=== PATIENT | female | born 2000 | race Caucasian/White ===

== ENCOUNTER 2021-02-01 14:58 | Inpatient (IN) | payer MEDICAID, SELFPAY ==
[2021-02-01] VITALS (15 sets, daily range): BP systolic 101–134; BP diastolic 53–91; PULSE 10–99; RESP 14–22; TEMP 36.6–37.1; O2SAT 96–100; BMI 21.7; BMI 20.4
--- NOTE | 2021-02-01 15:06 | EKG12_ITS ---
Test Reason : OD Blood Pressure : / mmHG Vent. Rate : 094 BPM Atrial Rate : 094 BPM P-R Int : 146 ms QRS Dur : 084 ms QT Int : 370 ms P-R-T Axes : 037 086 038 degrees QTc Int : 462 ms Normal sinus rhythm Normal ECG Confirmed by RONI HASSAN, JEAN ([id number]), movie editor FEDERICA FORTE ([id number]) on 02/06/2021 8:38:27 AM Referred By: Confirmed By:JEAN TAMAYO MD
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
--- NOTE | 2021-02-01 15:24 | CM.ED ---
NATHALY Note SW met with patient briefly. Patient reports she has no insurance. Plan: Crisis will need to be contacted for evaluation. Ashley EISENBERG
[2021-02-01 15:43] LABS: Absolute Lymphocyte Count 0.97 X10^3/uL (0.83-4.51); Absolute Neutrophil Count 3.1 X10^3/uL (2.0-7.7); Basophil# 0.01 X10^3/uL; Basophil% 0.2 % (0-1); Eosinophil# 0.07 X10^3/uL; Eosinophils% 1.5 % (0-5); Hematocrit 39.3 % (37-47); Lymphocyte # 0.97 X10^3/ul (0.83-4.51); Lymphocyte % 21.5 % (19-41); Mean Corp Hgb Conc 35.6 g/dL (32-36); Mean Corpuscular Hgb 32.4 pg (27.0-32.0); Mean Platelet Vol. 10.3 fl (6.2-12.0); Monocyte# 0.38 X10^3/uL; Monocyte% 8.4 % (0-10); NRBC Flagged by Analyzer 0 % (0-5); Neutrophil # 3.08 X10^3/uL (2.7-7.7); Neutrophil % 68.2 % (47-70); Platelet Count 290 K/mm3 (150-450); RBC Distribution Width CV 11.3 % (11.6-14.6); RBC Distribution Width SD 37.8 fl (35.1-43.9); Red Blood Count 4.32 M/mm3 (4.2-5.4); White Blood Count 4.5 K/mm3 (4.4-11.0)
[2021-02-01] MEDS: Activated Charcoal 25 GM/120 ML BOT PO (15:47)
[2021-02-01 15:54] LABS: Anion Gap 5 (5-15); BUN 8 mg/dL (7-18); BUN/Creat Ratio 12.2 RATIO (10-20); Calcium,Total 8.9 mg/dL (8.5-10.1); Chloride 108 mmol/L (98-107); Creatinine, Serum 0.66 mg/dL (0.55-1.02); EST Glomerular Filtration Rate 120 mL/min (>60); Est Glom Filt Rate - Afr Amer 145 mL/min (>60); Estimated Creatinine Clearance 126.22 ml/min; Glucose 112 mg/dL (74-106); Sodium Level 141 mmol/L (136-145)
[2021-02-01] MEDS: Ondansetron 4 MG/2 ML Vial IV ×2 (16:35→19:42)
[2021-02-01 16:55] LABS: Amphetamine Urine VISTA NEGATIVE (<1000 ng/mL); Barbiturate Urine VISTA NEGATIVE (< 200 ng/mL); Benzodiazepine Urine VISTA NEGATIVE (< 200 ng/mL); Cocaine Urine VISTA NEGATIVE (< 300 ng/mL); Ecstacy Urine VISTA NEGATIVE (< 500 ng/mL); Methadone Urine VISTA NEGATIVE (< 300 ng/mL); PCP Urine VISTA NEGATIVE (< 25 ng/mL); THC Urine VISTA NEGATIVE (< 50 ng/mL); Vista UDS pH Range 5
[2021-02-01 17:04] LABS: Acetaminophen (Tylenol) Level 165.6 ug/mL (10.0-30.0)
--- NOTE | 2021-02-01 17:04 | CM.ED ---
SW spoke to registration. Patient has [place] Medicaid. Plan: Referral to inpatient psych Ashley EISENBERG
[2021-02-01 17:14] LABS: Internal QC Validated? YES +Cl - CLEAR BKGD; Pregnancy, Serum, hCG Quali. NEGATIVE Negative
[2021-02-01 17:16] LABS: Salicylate < 1.7 mg/dL (2.8-20.0)
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
[2021-02-01 17:50] LABS: AST(SGOT) 18 U/L (15-37); Alanine Aminotransfer ALT/SGPT 25 U/L (13-56); Albumin, Serum 3.9 g/dL (3.2-5.0); Alkaline Phosphatase 72 U/L (45-117); Bilirubin, Direct 0.11 mg/dL (0.00-0.30); Globulin 4.4 g/dL (2.2-4.2); Protein, Total 8.3 g/dL (6.4-8.2)
--- NOTE | 2021-02-01 17:51 | ED.RN ---
report to icu
[2021-02-01] MEDS: 0.9% Normal Saline 1,000 ML 125 ML IV (19:01)
[2021-02-01 19:31] LABS: International Normalized Ratio 1.2; Prothrombin Time (Protime)PT. 14.2 SECONDS (11.7-14.9)
--- NOTE | 2021-02-01 19:45 | NURSING ---
pt said ok to give information to ema and jaison
[2021-02-01 19:54] LABS: Acetaminophen (Tylenol) Level 279.6 ug/mL (10.0-30.0)
--- NOTE | 2021-02-01 20:59 | CM.ED ---
NATHALY Note NATHALY called Angela at [facility] and updated her regarding patient in the ICU. NATHALY faxed MD notes and this teletypewriter operator's evaluation to [facility]. Plan: Inpatient psych Ashley EISENBERG
[2021-02-01 22:59] LABS: Acetaminophen (Tylenol) Level 139.4 ug/mL (10.0-30.0)
[2021-02-02] VITALS (11 sets, daily range): BP systolic 107–135; BP diastolic 71–91; PULSE 60–99; RESP 13–20; TEMP 36.6–37.1; O2SAT 96–100
[2021-02-02] MEDS: 0.9% Normal Saline 1,000 ML 125 ML IV (02:20)
[2021-02-02 05:26] LABS: ALB/GLOB Ratio 0.8 RATIO (0.9-2.4); AST(SGOT) 13 U/L (15-37); Alanine Aminotransfer ALT/SGPT 25 U/L (13-56); Albumin, Serum 3.1 g/dL (3.2-5.0); Alkaline Phosphatase 55 U/L (45-117); Anion Gap 7 (5-15); BUN 4 mg/dL (7-18); BUN/Creat Ratio 7.4 RATIO (10-20); Chloride 110 mmol/L (98-107); Creatinine, Serum 0.54 mg/dL (0.55-1.02); EST Glomerular Filtration Rate 150 mL/min (>60); Est Glom Filt Rate - Afr Amer 181 mL/min (>60); Estimated Creatinine Clearance 174.31 ml/min; Globulin 3.7 g/dL (2.2-4.2); Glucose 91 mg/dL (74-106); Potassium 3.1 mmol/L (3.5-5.1); Protein, Total 6.8 g/dL (6.4-8.2); Sodium Level 141 mmol/L (136-145)
--- NOTE | 2021-02-02 06:54 | EX.PCM.CONCC ---
Assessment & Plan Assessment/Plan (1) Intentional acetaminophen overdose: PLAN: RECOMMENDATIONS: 1. Recheck acetaminophen level at 0900 hrs. If levels remain normal, will discontinue N-acetylcysteine. 2. Potassium repletion as ordered. 3. Encourage incentive spirometer use and mobilize patient as tolerated. 4. Crisis evaluation later today. 5. Will sign off from a critical care perspective. Please call with any additional questions. IMPRESSIONS: 1. Intentional acetaminophen overdose/suicide attempt The patient presented to the hospital with an intentional acetaminophen overdose and qualified for the initiation of N-acetylcysteine. The patient's acetaminophen level has normalized overnight. Liver function remains within normal limits. The patient is mentating appropriately. If the recheck of her acetaminophen level this morning remains within normal limits, will discontinue N-acetylcysteine. The patient can then be evaluated by crisis. 2. Hypokalemia Electrolyte repletion as ordered. Recheck levels in the morning. 3. History of schizophrenia/prior suicide attempt Complicates care, management, recovery and prognosis. Management as noted above. This note was generated with [employer] dictation software. It may contain incorrect words, spelling, and punctuation that were not noted in checking the note before signing. HPI Consult Data Date of Consult: 02/02/21 HPI Narrative Reason for Consultation: Acetaminophen overdose HPI Narrative: The patient is a 20-year-old female, with a history as outlined below, who presented to the emergency department on February 01 following an intentional acetaminophen overdose. The patient reported that the inciting factor leading to her overdose was an argument that she had with her boyfriend. She does report a prior suicide attempt at the age of [age] years old. She reports a history of schizophrenia, but denies taking any prescribed medications. On presentation to the emergency department, the patient was noted to be afebrile and hemodynamically stable. She was maintaining appropriate oxygen saturations on room air. CBC with differential was unremarkable. Coagulation profile was within normal limits. Chemistry and liver function profile were within normal limits. test was negative. Toxicology screen was negative. Alcohol level was negative. Peak acetaminophen level was noted to be 279. Rapid coronavirus antigen testing was negative. The patient received supplemental IV fluid hydration and was started on N-acetylcysteine. She was admitted to the medical intensive care unit for further management. No overnight issues were identified by the nursing staff. This morning, the patient's acetaminophen level was noted to be 25. [facility] Medical History ADD (attention deficit disorder) Bipolar 1 disorder Suicidal ideation Allergy/AdvReac Type Severity Reaction Status Date / Time bee venom protein (honey bee) Allergy Hives Verified 02/01/21 15:02 grass pollen Allergy Itching Verified 02/01/21 15:02 peanut Allergy Anaphylaxis Verified 02/01/21 15:02 strawberry Allergy Anaphylaxis Verified 02/01/21 15:02 Social History Smoking Status: Current every day smoker tobacco type: cigarettes and e-cigarettes ROS Constitutional Constitutional: Denies chills, fatigue, fever(s) or headache(s) Eyes Eyes: Denies blurry vision or change in vision ENT HEENT: Denies dizziness, dysphagia, epistaxis or headache(s) Cardiovascular Cardiovascular: Denies chest pain, dyspnea or edema Respiratory/Chest Respiratory/Chest: Denies cough or dyspnea Gastrointestinal Gastrointestinal: Denies abdominal pain, diarrhea, nausea or vomiting Genitourinary Genitourinary: Denies difficulty urinating Musculoskeletal Musculoskeletal: Denies arthralgias Integumentary Integumentary: Denies lesions, rash or skin ulcer Neurologic Neurologic: Denies abnormal gait or abnormal speech Psychiatric Psychiatric: Reports depression and suicidal ideation Endocrine Endocrinology: Denies fatigue Hematologic/Lymphatic Hematologic/Lymphatic: Denies easy bleeding or easy bruising Physical Exam Const alert and no apparent distress General Appearance: cooperative and well developed HEENT normocephalic and head/scalp atraumatic Teeth and Gingiva: poor dentition Eyes PERRL, EOMs intact bilaterally and conjunctivae normal Neck supple General: trachea midline Chest inspection of chest normal Resp Auscultation: clear to auscultation bilaterally Cardio regular rate, regular rhythm, S1 normal heart sound and S2 normal heart sound GI normal to inspection, nondistended, normoactive bowel sounds Extremity no clubbing, cyanosis or edema Skin no rashes or lesions noted Neuro moves all extremities and no focal motor deficits Psych cooperative and affect normal Lab / Micro Data Result Diagrams: 02/01/21 15:20 02/02/21 05:00 Labs: Laboratory Results - last 24 hr 02/01/21 15:20: Salicylates < 1.7 L, Acetaminophen Cancelled 02/01/21 15:20: WBC 4.5, RBC 4.32, Hgb 14.0, Hct 39.3, MCV 91.0, MCH 32.4 H, MCHC 35.6, RDW Std Deviation 37.8, RDW Coeff of Priyank 11.3 L, Plt Count 290, MPV 10.3, Immature Gran % (Auto) 0.200, Neut % (Auto) 68.2, Lymph % (Auto) 21.5, [place] % (Auto) 8.4, Eos % (Auto) 1.5, Baso % (Auto) 0.2, Absolute Neuts (auto) 3.1, Absolute Lymphs (auto) 0.97, Nucleated RBC % 0 02/01/21 15:20: Sodium 141, Potassium 4.0, Chloride 108 H, Carbon Dioxide 28.0, Anion Gap 5, BUN 8, Creatinine 0.66, Estim Creat Clear Calc 126.22, Est GFR (MDRD) Af Amer 145, Est GFR (MDRD) Non-Af 120, BUN/Creatinine Ratio 12.2, Glucose 112 H, Calcium 8.9 02/01/21 15:20: Ethyl Alcohol 6.0 02/01/21 15:20: Serum , Qual NEGATIVE 02/01/21 15:20: Acetaminophen 165.6 H* 02/01/21 15:20: Total Bilirubin 0.40, Direct Bilirubin 0.11, AST 18, ALT 25, Alkaline Phosphatase 72, Total Protein 8.3 H, Albumin 3.9, Globulin 4.4 H 02/01/21 15:35: Urine Opiates Screen NEGATIVE, Urine Methadone Screen NEGATIVE, Ur Barbiturates Screen NEGATIVE, Ur Phencyclidine Scrn NEGATIVE, Ur Amphetamines Screen NEGATIVE, U Methamphetamin-MDMA NEGATIVE, U Benzodiazepines Scrn NEGATIVE, Urine Cocaine Screen NEGATIVE, U Cannabinoids Screen NEGATIVE, Ur Drug Screen Comment 02/01/21 19:00: PT 14.2, INR 1.2 02/01/21 19:00: Acetaminophen 279.6 H* 02/01/21 22:20: Acetaminophen 139.4 H* 02/02/21 05:00: Sodium 141, Potassium 3.1 L, Chloride 110 H, Carbon Dioxide 24.0, Anion Gap 7, BUN 4 L, Creatinine 0.54 L, Estim Creat Clear Calc 174.31, Est GFR (MDRD) Af Amer 181, Est GFR (MDRD) Non-Af 150, BUN/Creatinine Ratio 7.4 L, Glucose 91, Calcium 8.0 L, Total Bilirubin 0.40, AST 13 L, ALT 25, Alkaline Phosphatase 55, Total Protein 6.8, Albumin 3.1 L, Globulin 3.7, Albumin/Globulin Ratio 0.8 L 02/02/21 05:00: Acetaminophen 25.0 Micro: Microbiology 02/01/21 15:25 Nasal Secretion SARS-CoV-2 Antigen (Rapid) - Final Charges/Coding Visit Charges Inpatient E&M: 02541 Init Hosp L3
[2021-02-02] MEDS: Potassium Chloride Oral Tablet 20 MEQ 60 MEQ PO (08:35)
[2021-02-02 10:46] LABS: Acetaminophen (Tylenol) Level 5.6 ug/mL (10.0-30.0)
--- NOTE | 2021-02-02 11:09 | NURSING ---
Rosalinda MARTINEZ SW contacted regarding pt's medical clearance, as crisis assessment and referral process already initiated in ED. She stated that she will start working on pt's case.
--- NOTE | 2021-02-02 11:31 | CASEMGMT ---
SOCIAL WORK Call from nursing, patient is medically cleared. SW has already assessed patient and patient requires hospitalization due to intentional overdose. Referral called and faxed to [facility]. Intake reports beds available. Pending review at this time. Terri Chaparro, [employer], CAPSULE FILLING MACHINE OPERATOR
--- NOTE | 2021-02-02 13:32 | CASEMGMT ---
Awaiting [facility] to let SW know when pt can be set up for transport. SW let pt know that she will be going to [facility] to be assessed, due to the overdose. Pt states understanding. Pt would like SW to call her grandmother Marcos Youngblood to let her know where she is going. SW called grandmother Marcos Youngblood([phone]) to let her know pt is going to [facility] later today, phone number given to Marcos. LALITO Rose
--- NOTE | 2021-02-02 13:33 | PN.HOSP_ITS ---
Subjective Subjective Patient seen and examined. She had no complaints. Her serum acetaminophen level had trended down to 5.6 today. Review of systems otherwise negative. Objective Data Objective Data Vital Signs: Vital Signs Temp Pulse Resp BP Pulse Ox 98.7 F 78 18 114/74 98 02/02/21 11:02 02/02/21 11:02 02/02/21 11:02 02/02/21 11:02 02/02/21 11:02 Oxygen Delivery Method Room Air Weight: 147 lb 11.355 oz Body Mass Index (BMI) 20.4 Intake & Output: Intake and Output for Last 24 Hours 01/31/21 02/01/21 02/02/21 23:59 23:59 23:59 Intake Total 735 / 735 4184.11 / 4184.11 Balance 735 / 735 4184.11 / 4184.11 Lab / Micro Data Result Diagrams: 02/01/21 15:20 02/02/21 05:00 Labs: Laboratory Results - last 24 hr 02/01/21 15:20: Salicylates < 1.7 L, Acetaminophen Cancelled 02/01/21 15:20: WBC 4.5, RBC 4.32, Hgb 14.0, Hct 39.3, MCV 91.0, MCH 32.4 H, MCHC 35.6, RDW Std Deviation 37.8, RDW Coeff of Priyank 11.3 L, Plt Count 290, MPV 10.3, Immature Gran % (Auto) 0.200, Neut % (Auto) 68.2, Lymph % (Auto) 21.5, [place] % (Auto) 8.4, Eos % (Auto) 1.5, Baso % (Auto) 0.2, Absolute Neuts (auto) 3.1, Absolute Lymphs (auto) 0.97, Nucleated RBC % 0 02/01/21 15:20: Sodium 141, Potassium 4.0, Chloride 108 H, Carbon Dioxide 28.0, Anion Gap 5, BUN 8, Creatinine 0.66, Estim Creat Clear Calc 126.22, Est GFR (MDRD) Af Amer 145, Est GFR (MDRD) Non-Af 120, BUN/Creatinine Ratio 12.2, Glucose 112 H, Calcium 8.9 02/01/21 15:20: Ethyl Alcohol 6.0 02/01/21 15:20: Serum , Qual NEGATIVE 02/01/21 15:20: Acetaminophen 165.6 H* 02/01/21 15:20: Total Bilirubin 0.40, Direct Bilirubin 0.11, AST 18, ALT 25, Alkaline Phosphatase 72, Total Protein 8.3 H, Albumin 3.9, Globulin 4.4 H 02/01/21 15:35: Urine Opiates Screen NEGATIVE, Urine Methadone Screen NEGATIVE, Ur Barbiturates Screen NEGATIVE, Ur Phencyclidine Scrn NEGATIVE, Ur Amphetamines Screen NEGATIVE, U Methamphetamin-MDMA NEGATIVE, U Benzodiazepines Scrn NEG ATIVE, Urine Cocaine Screen NEGATIVE, U Cannabinoids Screen NEGATIVE, Ur Drug Screen Comment 02/01/21 19:00: PT 14.2, INR 1.2 02/01/21 19:00: Acetaminophen 279.6 H* 02/01/21 22:20: Acetaminophen 139.4 H* 02/02/21 05:00: Sodium 141, Potassium 3.1 L, Chloride 110 H, Carbon Dioxide 24.0, Anion Gap 7, BUN 4 L, Creatinine 0.54 L, Estim Creat Clear Calc 174.31, Est GFR (MDRD) Af Amer 181, Est GFR (MDRD) Non-Af 150, BUN/Creatinine Ratio 7.4 L, Glucose 91, Calcium 8.0 L, Total Bilirubin 0.40, AST 13 L, ALT 25, Alkaline Phosphatase 55, Total Protein 6.8, Albumin 3.1 L, Globulin 3.7, Albumin/Globulin Ratio 0.8 L 02/02/21 05:00: Acetaminophen 25.0 02/02/21 07:45: Acetaminophen 5.6 L Micro: Microbiology 02/01/21 15:25 Nasal Secretion SARS-CoV-2 Antigen (Rapid) - Final Physical Exam Const alert, oriented x3 and healthy appearing General Appearance: cooperative Exam Limitations: no limitations HEENT normocephalic, head/scalp atraumatic, hearing grossly normal bilaterally and moist oral mucous membranes Head and Scalp: normocephalic Eyes PERRL, EOMs intact bilaterally and conjunctivae normal Neck no lymphadenopathy and supple Resp normal respiratory effort, no retractions, no use of accessory muscles and clear to auscultation bilaterally Cardio regular rate, regular rhythm, S1 normal heart sound, S2 normal heart sound and no murmurs GI normal to inspection, nondistended, normoactive bowel sounds, soft to palpation, non-tender and non-distended Extremity normal to inspection, full ROM and no clubbing, cyanosis or edema Peripheral Pulses: Yes pulses 2+ throughout Skin no rashes or lesions noted Neuro oriented x3, CN's II-XII intact bilaterally and moves all extremities Sensorium / Orientation: awake and alert Psych affect normal Assessment & Plan Assessment/Plan (1) Acetaminophen toxicity: (2) Intentional acetaminophen overdose: (3) Suicide attempt by acetaminophen overdose: PLAN: #Intentional acetaminophen overdose in suicide attempt * resolved. Tylenol level down to 5.6 * weaned off N acetyl cysteine today. * INR was not elevated * clinically stable and awaiting mental health crises evaluation * critical care on board * #Suicidal attempt with tylenol overdose: as above. DVT prophylaxis: SCDs Disposition: awaiting evaluation by mental health crises team. Charges/Coding Visit Charges Inpatient E&M: 35456 Subs Hosp L2
--- NOTE | 2021-02-02 13:52 | CASEMGMT ---
SOCIAL WORK Call to [facility] to inquire about accepting information and when transport can be arranged. Informed still adding patient into system and will call this worker back. Awaiting call from despatch clerk at [facility]. Terri Chaparro MSW, OPTICAL DESIGNER
--- NOTE | 2021-02-02 14:45 | CASEMGMT ---
SOCIAL WORK Patient accepted to [facility] room [address] Alfaro. Nurse to call report to [phone]. Patient has been updated by Kacie ANDERSEN. Call to [facility]. ETA 60 minutes. Nurse updated. Terri Chaparro MSW, BREAD JOCKEY
--- NOTE | 2021-02-02 15:44 | PCM.DC.SUM ---
Providers Date of Admission: 02/01/21 Primary Care Physician: Oksana Primary Care Phys Consultations 02/01/21 18:51 Consult: Senior Trial Attorney / Pulmonary Medicine Routine Consulting Provider: Pulmonary Medicine cierra Thomposn Reason for Consult: tylenol overdose EMERGENT Consult: No MD Notified: Yes Date Notified: 02/01/21 Time Notified: 18:51 Method of Notification: Text Reason For Visit: INTENTIONAL TYLENOL OVERDOSE Diagnosis Discharge Diagnosis (1) Acetaminophen toxicity: Status: Acute Code(s): T39.1X1A - Poisoning by 4-Aminophenol derivatives, accidental (unintentional), initial encounter (2) Intentional acetaminophen overdose: Status: Acute Code(s): T39.1X2A - Poisoning by 4-Aminophenol derivatives, intentional self-harm, initial encounter (3) Suicide attempt by acetaminophen overdose: Status: Acute Code(s): T39.1X2A - Poisoning by 4-Aminophenol derivatives, intentional self-harm, initial encounter Hospital Course Operations None Summary of Care Provided Minutes Spent on Discharge: 45 Hospital Course: SARAH ROSA, is a 20 F who was admitted through the ED on 02/01/2021 for Tylenol overdose. Patient states her boyfriend broke up with her so she took an overdose of Tylenol. She took 80 pills of acetaminophen 500mg tablets. Her partner made her throw up,a nd she thinks she may have vomited some of it up. She took the pills ~ 30 mins prior to her evaluation in the ED. She has a history fo ADD, bipolar disorder and depression. Review of system was otherwise negative. CBC was unremarkable and BMP was also unremarkable. Liver profile is pending. Serum acetaminophen level was elevated at 165.6. She wasnt yet on the [facility] Charbel Normogram as it starts 4 hours after ingestion. She was given activated charcoal in the ED, She was started on N acetyl cysteine and admitted to the ICU to be managed for acute acetaminophen intoxication. Her Tylenol level trended up to a peak of 279.6 but subsequently started trending down and was 5.6 at time of discharge. Patient tolerated the N-acetylcysteine and this was discontinued after her Tylenol levels fell to less than 10. Crisis mental health team was consulted to evaluate patient. They did evaluate patient and patient was admitted to an inpatient psych facility on 02/02/2021. Patient was therefore discharged to the psych facility on 02/02/2021. Patient was seen and examined prior to discharge. She felt well and had no complaints and had an uneventful night. Review of stents otherwise negative. Labs and vitals reviewed. Home medication reviewed and reconciled. Physical Exam Const alert, oriented x3 and healthy appearing General Appearance: cooperative Exam Limitations: no limitations HEENT normocephalic, head/scalp atraumatic, hearing grossly normal bilaterally and moist oral mucous membranes Eyes PERRL, EOMs intact bilaterally and conjunctivae normal Neck no lymphadenopathy and supple Resp normal respiratory effort, no retractions, no use of accessory muscles and clear to auscultation bilaterally Cardio regular rate, regular rhythm, S1 normal heart sound, S2 normal heart sound and no murmurs GI normal to inspection, nondistended, normoactive bowel sounds, soft to palpation, non-tender and non-distended Extremity normal to inspection, full ROM and no clubbing, cyanosis or edema Skin no rashes or lesions noted Neuro oriented x3, CN's II-XII intact bilaterally and moves all extremities Sensorium / Orientation: awake and alert Psych affect normal Weight / BMI Weight Weight: 147 lb 11.355 oz Body Mass Index (BMI) 20.4 ABG / Lab / Microbiology Data Result Diagrams: 02/01/21 15:20 02/02/21 05:00 Laboratory: Laboratory Results - last 24 hr 02/01/21 15:20: Salicylates < 1.7 L, Acetaminophen Cancelled 02/01/21 15:20: WBC 4.5, RBC 4.32, Hgb 14.0, Hct 39.3, MCV 91.0, MCH 32.4 H, MCHC 35.6, RDW Std Deviation 37.8, RDW Coeff of Priyank 11.3 L, Plt Count 290, MPV 10.3, Immature Gran % (Auto) 0.200, Neut % (Auto) 68.2, Lymph % (Auto) 21.5, [place] % (Auto) 8.4, Eos % (Auto) 1.5, Baso % (Auto) 0.2, Absolute Neuts (auto) 3.1, Absolute Lymphs (auto) 0.97, Nucleated RBC % 0 02/01/21 15:20: Sodium 141, Potassium 4.0, Chloride 108 H, Carbon Dioxide 28.0, Anion Gap 5, BUN 8, Creatinine 0.66, Estim Creat Clear Calc 126.22, Est GFR (MDRD) Af Amer 145, Est GFR (MDRD) Non-Af 120, BUN/Creatinine Ratio 12.2, Glucose 112 H, Calcium 8.9 02/01/21 15:20: Ethyl Alcohol 6.0 02/01/21 15:20: Serum , Qual NEGATIVE 02/01/21 15:20: Acetaminophen 165.6 H* 02/01/21 15:20: Total Bilirubin 0.40, Direct Bilirubin 0.11, AST 18, ALT 25, Alkaline Phosphatase 72, Total Protein 8.3 H, Albumin 3.9, Globulin 4.4 H 02/01/21 15:35: Urine Opiates Screen NEGATIVE, Urine Methadone Screen NEGATIVE, Ur Barbiturates Screen NEGATIVE, Ur Phencyclidine Scrn NEGATIVE, Ur Amphetamines Screen NEGATIVE, U Methamphetamin-MDMA NEGATIVE, U Benzodiazepines Scrn NEGATIVE, Urine Cocaine Screen NEGATIVE, U Cannabinoids Screen NEGATIVE, Ur Drug Screen Comment 02/01/21 19:00: PT 14.2, INR 1.2 02/01/21 19:00: Acetaminophen 279.6 H* 02/01/21 22:20: Acetaminophen 139.4 H* 02/02/21 05:00: Sodium 141, Potassium 3.1 L, Chloride 110 H, Carbon Dioxide 24.0, Anion Gap 7, BUN 4 L, Creatinine 0.54 L, Estim Creat Clear Calc 174.31, Est GFR (MDRD) Af Amer 181, Est GFR (MDRD) Non-Af 150, BUN/Creatinine Ratio 7.4 L, Glucose 91, Calcium 8.0 L, Total Bilirubin 0.40, AST 13 L, ALT 25, Alkaline Phosphatase 55, Total Protein 6.8, Albumin 3.1 L, Globulin 3.7, Albumin/Globulin Ratio 0.8 L 02/02/21 05:00: Acetaminophen 25.0 02/02/21 07:45: Acetaminophen 5.6 L Microbiology: Microbiology 02/01/21 15:25 Nasal Secretion SARS-CoV-2 Antigen (Rapid) - Final D/C Instructions Discharge Diet: No restrictions Meaningful Use Info Meaningful Use Diagnoses (Choose all that apply): None applicable Discharge Plan Admission Admit Date/Time: 02/01/21 17:41 Primary Reason for Your Visit: suicide attempt with intentional tylenol overdose Attending Provider: Gila Kwok Primary Care Provider: Care Physician,No Primary Consulting Providers: Guido Pérez ; Jose Cruz Pulido ; Elysia Ordonez NP Discharge Orders/Prescriptions Referrals / Follow Up: Care Physician,No Primary [Primary Care Provider] - Disposition Disposition (needs filled in before D/C Order can be placed): Psychiatric Hospital or Unit Charges/Coding Visit Charges Inpatient E&M: 46056 Disch Hosp
== END 2021-02-02 15:40 | DRG 817 ==
LOC: ED 17:26 → ICU 17:50
PROVIDERS: Internal Medicine Critical Care Medicine; Admitting Provider Student in an Organized Health Care Education/Training Program; Emergency Provider Emergency Medicine; Visit Provider Student in an Organized Health Care Education/Training Program
DX: T39.1X2A Poisoning by 4-Aminophenol derivatives, intentional self-harm, initial encounter (principal); F17.210 Nicotine dependence, cigarettes, uncomplicated; E87.6 Hypokalemia
CPT/HCPCS: 80048; 80053; 80076; 80307; 80329; 82077; 84703; 85025; 85610; 87426; 93005; 99285; J7030; A4216; G0480; J2405

== ENCOUNTER 2021-02-07 15:57 | Emergency (ER) | payer MEDICAID, SELFPAY ==
[2021-02-07 15:58] VITALS: BP 137/91; PULSE 100; RESP 18; TEMP 36.6; O2SAT 98; BMI 24.6
--- NOTE | 2021-02-07 16:20 | EDS_ITS ---
HPI History of Present Illness Chief Complaint: Other, Pain/Inj Narrative Narrative: 20-year-old female presenting with neck pain. She states her neck go front words. Patient denies any injury. She stated the pain started about an hour ago. She has not tried anything for pain. She has not tried ice or heat. She denies paresthesias. Patient recently admitted in transfer to psychiatric facility for suicide attempt with acetaminophen and was discharged 2 days ago apparently. She states she has not been able to get her Abilify because drug [place] says this pending. She thinks this may be a side effect of withdrawal from Abilify. She denies taking any medications to overdose. She denies drugs or alcohol. She denies suicidal or homicidal ideation. [facility] Medical History ADD (attention deficit disorder) Bipolar 1 disorder Suicidal ideation Allergy/AdvReac Type Severity Reaction Status Date / Time bee venom protein (honey bee) Allergy Hives Verified 02/07/21 16:09 grass pollen Allergy Itching Verified 02/07/21 16:09 peanut Allergy Anaphylaxis Verified 02/07/21 16:09 strawberry Allergy Anaphylaxis Verified 02/07/21 16:09 Social History Smoking Status: Current every day smoker tobacco type: cigarettes and e- cigarettes ROS ROS ED Constitutional Constitutional ED: Denies chills, fever(s) or sweats Eyes Eyes: Denies blurry vision or change in vision ENT ENT ED: Denies ear pain or sore throat Cardiovascular Cardiovascular: Denies chest pain, palpitations or racing heartbeat Respiratory/Chest Respiratory/Chest: Denies cough, dyspnea or sputum Gastrointestinal Gastrointestinal: Denies abdominal pain, constipation, diarrhea, nausea or vomiting Genitourinary Genitourinary ED: Denies dysuria, hematuria or urinary frequency Musculoskeletal Musculoskeletal: Reports neck pain; Denies arthralgias or myalgias Integumentary Denies abscess, Abrasions or rash Neurologic Neurologic: Denies headache(s), paresthesias or weakness Psychiatric Psychiatric: Denies anxiety, depression, suicidal ideation or suicidal thoughts Endocrine Endocrinology: Denies polydipsia or polyuria EXAM Physical Exam Const Vital Signs: 02/07/21 15:58 02/07/21 16:17 Temperature 97.9 F Temperature Source Temporal Pulse Rate 100 Respiratory Rate 18 Respiratory Effort Normal Respiratory Pattern Normal Blood Pressure 137/91 H Blood Pressure Mean 106 Pulse Ox 98 Oxygen Delivery Method Room Air Positive well nourished General Appearance ED: NAD; Negative for pallor HEENT Reports normocephalic, head/scalp atraumatic and moist mucous membranes atraumatic Eyes PERRL and EOMs intact bilaterally Neck full ROM, no lymphadenopathy and supple Neck Narrative: No midline spinal tenderness, deformity, step-off. Chest Wall inspection of chest normal and palpation of chest normal Resp normal respiratory effort and clear to auscultation bilaterally Auscultation: Negative for rales, rhonchi or wheezes Cardio regular rate and regular rhythm GI normal to inspection, nondistended, normoactive bowel sounds and non-distended Auscultation: normoactive bowel sounds Palpation: soft Narrative: Deferred Back/Spine no CVA tenderness General Back: Negative for CVA tenderness Cervical Spine: Negative for cervical spine tenderness Extremity normal to inspection General Extremety ED: Yes edema and tenderness General Extremity: edema Neuro oriented x3 and CN's II-XII intact bilaterally Sensorium / Orientation: alert Motor Exam: strength 5/5 throughout Psych Attitude: No agitated Skin no rashes or lesions noted and no wounds General Skin Exam: Negative for jaundice or pallor MDM MDM MDM Narrative Medical decision making narrative: Patient reports that she has neck pain. She has not tried anything prior to arrival. She was given a shot of Toradol. X- rays of the cervical spine on my interpretation shows no acute fracture and is otherwise normal cervical spine x-ray. Radiologist agree. Since patient states that she is not able to fill her prescription I had social work check into her prescription. Apparently she had reported to the pharmacy that her Medicaid was pending. Social work confirmed that it is not and that her prescriptions are ready and she can pick them up. Patient was counseled that she could use Tylenol and ibuprofen in alternating doses. I did caution her about using over the recommended daily dose of either. It is recommended that she continue taking her medications as prescribed. She is given return precautions. Impression: 1. Cervical strain Radiography Diagnostic Testing: Clinical Impression(s) from Imaging Studies Cervical Spine X-Ray 02/07/21 16:30 IMPRESSION: Normal x-ray examination of the visualized cervical spine. Electronically Signed: Nikita Ellington MD ([place]) at 16:45 EDT , Service support , Discharge Plan Triage Chief Complaint: Other, Pain/Inj ED Provider: Mark Garzon Dx/Rx/DC Orders Instructions: ED Neck Sprain or Strain Primary Care Provider: Care Physician,No Primary Referrals: Satinder Clifton MD [STAFF PHYSICIAN] - As Needed Care Physician,No Primary [Primary Care Provider] - Disposition Disposition: Home, Self Care
[2021-02-07] MEDS: Ketorolac 15 MG/ML Vial IM (16:29)
--- NOTE | 2021-02-07 16:30 | RAD_ITS ---
STUDY: X-RAY - CERVICAL SPINE REASON FOR EXAM: Female, 20 years old. neck pain TECHNIQUE: 5 view(s) of the cervical spine were obtained. COMPARISON: None FINDINGS: Normal anterior atlantoaxial articulation. Normal odontoid process. Normal cervical lordosis. Normal vertebral bodies and endplates. Normal disc space heights. Normal visualized intervertebral neuroforamina. The soft tissue structures are unremarkable. RAD/Cerv Spine 4 or 5 Views IMPRESSION: Normal x-ray examination of the visualized cervical spine. Electronically Signed: Nikita Ellington MD ([place]) at 16:45 EDT , Service support ,
[2021-02-07 17:01] VITALS: BP 131/93; PULSE 89; RESP 14; O2SAT 98
--- NOTE | 2021-02-07 19:43 | CM.ED ---
SOCIAL WORK Referral Source: Dr. Garzon Reason for Consult: Resources-assistance with medications Met with patient in room. Patient was placed at [facility] on 02/02/21. Patient reports unable to afford medications. Patient unable to list all medications prescribed and dosage. Call to [facility], per pharmacist did not have patient's Medicaid in the system. Medicaid number provided. Prescriptions to be filled and will have $0 cost. Patient updated and reports will have someone drive her to pharmacy. Patient inquiring about being in contact of family member who has COVID-19. Questions relayed to Dr. Garzon. Plan: Home, patient to [facility] prescriptions from [facility]. Terri Chaparro MSW, ASSEMBLY DEPARTMENT SUPERVISOR
== END 2021-02-07 17:02 | disposition home or self-care (01) ==
PROVIDERS: Emergency Provider Student in an Organized Health Care Education/Training Program
DX: S16.1XXA Strain of muscle, fascia and tendon at neck level, initial encounter (principal); F17.210 Nicotine dependence, cigarettes, uncomplicated; X58.XXXA Exposure to other specified factors, initial encounter
CPT/HCPCS: 72050; 96372; 99282

== ENCOUNTER 2021-02-21 02:09 | Emergency (ER) | payer MEDICAID, SELFPAY ==
[2021-02-21 02:10] VITALS: BP 105/70; PULSE 82; RESP 16; TEMP 36.3; O2SAT 98; BMI 22.9
--- NOTE | 2021-02-21 02:20 | EDS_ITS ---
HPI HPI - GI History of Present Illness Chief Complaint: Abd Pain Narrative Narrative: Patient presents reporting blood-tinged emesis. She states that approximately an hour and a half ago she felt nauseated and vomited once with blood-tinged sputum. She denies any black or tarry stool. Her nausea has resolved. She denies any chest pain or lightheadedness. Past medical history includes bipolar disorder. She states she does not take any blood thinners. [facility] Medical History ADD (attention deficit disorder) Bipolar 1 disorder Suicidal ideation Home Medications aripiprazole 15 mg DAILY 02/21/21 [History Last Taken Unknown] clonidine HCl 0.1 mg 02/21/21 [History Last Taken Unknown] Allergy/AdvReac Type Severity Reaction Status Date / Time bee venom protein (honey bee) Allergy Hives Verified 02/21/21 02:15 grass pollen Allergy Itching Verified 02/21/21 02:15 peanut Allergy Anaphylaxis Verified 02/21/21 02:15 strawberry Allergy Anaphylaxis Verified 02/21/21 02:15 Social History Smoking Status: Current every day smoker tobacco type: cigarettes and e- cigarettes ROS ROS ED ROS Narrative Constitutional: No fever, no chills. HEENT: No sore throat. No neck pain. No loss of vision. No rhinorrhea. Cardiovascular: No chest pain. No palpitations. No pedal edema. Respiratory: No cough, no shortness of breath. Abdominal: No abdominal pain. Positive nausea. Positive [id number]. Genitourinary: No dysuria. No hematuria. Musculoskeletal: No myalgias. No arthralgias. Neurologic: No headaches. No dizziness. No lightheadedness. Skin: No rash. No change in color. Psychiatric: No depression. No anxiety. EXAM Physical Exam Narrative Exam Narrative: Afebrile. Vital signs noted. HEENT: Normocephalic. Atraumatic. PERRL, EOMI. Neck soft and supple. No point tenderness or step off. No blood in oropharynx. Cardiovascular: Regular rate and rhythm. No murmurs, rubs, or gallops appreciated. Respiratory: No tachypnea. Lungs clear to auscultation bilaterally. Gastrointestinal: Abdomen soft, nontender, with normoactive bowel sounds. No rebound or guarding. Neurological: Awake. Alert. Nonfocal, nonlateralizing. Skin: No rash. Normal color. No pallor. Musculoskeletal: No pedal edema. Full range of motion extremities. Psychiatric: Slightly flat affect Const Vital Signs: 02/21/21 02:10 Temperature 97.4 F L Temperature Source Temporal Pulse Rate 82 Respiratory Rate 16 Blood Pressure 105/70 Blood Pressure Mean 81 Pulse Ox 98 Oxygen Delivery Method Room Air MDM MDM MDM Narrative Medical decision making narrative: Baseline laboratories were obtained including CBC, CMP, lipase, and test. CBC shows normal white count of 6.7 with hemoglobin stable at 12.6. Serum is negative. Electrolyte panel shows chloride slightly elevated at 108, but normal BUN. Lipase is slightly low at 72. I do not feel that NG is indicated. There has been no vomiting here. She states she only vomited once. She was reassured. I feel she can be discharged safely home with follow-up. Return instructions to the emergency department were reviewed. Disposition is discharged home in stable condition. Lab Data Labs: Laboratory Results - last 24 hr 02/21/21 02/21/21 02/21/21 02:15 02:15 02:15 WBC 6.7 RBC 3.94 L Hgb 12.6 Hct 35.8 L MCV 90.9 MCH 32.0 MCHC 35.2 RDW Std Deviation 39.5 RDW Coeff of Priyank 12.0 Plt Count 221 MPV 10.6 Immature Gran % (Auto) 0.300 Neut % (Auto) 63.7 Lymph % (Auto) 23.5 [place] % (Auto) 9.7 Eos % (Auto) 2.4 Baso % (Auto) 0.4 Absolute Neuts (auto) 4.3 Absolute Lymphs (auto) 1.58 Nucleated RBC % 0 Sodium 139 Potassium 3.6 Chloride 108 H Carbon Dioxide 25.0 Anion Gap 6 BUN 12 Creatinine 0.60 Estim Creat Clear Calc 138.85 Est GFR (MDRD) Af Amer 163 Est GFR (MDRD) Non-Af 134 BUN/Creatinine Ratio 20.2 H Glucose 100 Calcium 8.7 Total Bilirubin 0.50 AST 21 ALT 38 Alkaline Phosphatase 58 Total Protein 7.8 Albumin 3.7 Globulin 4.1 Albumin/Globulin Ratio 0.9 Lipase 72 L Serum , Qual NEGATIVE Discharge Plan Triage Chief Complaint: Abd Pain ED Provider: Dallas Jiang Dx/Rx/DC Orders Clinical Impression: Symptom of blood in vomit, Sierra-Hendrickson tear Instructions: Sierra-Hendrickson Tear, ED Upper GI Bleeding (Stable) Prescriptions: No Action clonidine HCl 0.1 mg tablet 0.1 mg RF: 0 aripiprazole 15 mg tablet 15 mg DAILY RF: 0 Primary Care Provider: Care Physician,No Primary Referrals: Care Physician,No Primary [Primary Care Provider] - Clinic,NOW [NON-STAFF] - 02/23/21 Disposition Disposition: Home, Self Care
[2021-02-21 02:30] LABS: Absolute Lymphocyte Count 1.58 X10^3/uL (0.83-4.51); Absolute Neutrophil Count 4.3 X10^3/uL (2.0-7.7); Basophil# 0.03 X10^3/uL; Basophil% 0.4 % (0-1); Eosinophil# 0.16 X10^3/uL; Eosinophils% 2.4 % (0-5); Hematocrit 35.8 % (37-47); Hemoglobin 12.6 g/dL (12.0-15.0); Lymphocyte # 1.58 X10^3/ul (0.83-4.51); Lymphocyte % 23.5 % (19-41); Mean Corp Hgb Conc 35.2 g/dL (32-36); Mean Corpuscular Volume 90.9 fL (81-99); Mean Platelet Vol. 10.6 fl (6.2-12.0); Monocyte# 0.65 X10^3/uL; Monocyte% 9.7 % (0-10); NRBC Flagged by Analyzer 0 % (0-5); Neutrophil # 4.29 X10^3/uL (2.7-7.7); Neutrophil % 63.7 % (47-70); Platelet Count 221 K/mm3 (150-450); RBC Distribution Width SD 39.5 fl (35.1-43.9); Red Blood Count 3.94 M/mm3 (4.2-5.4); White Blood Count 6.7 K/mm3 (4.4-11.0)
[2021-02-21 02:37] LABS: Internal QC Validated? YES +Cl - CLEAR BKGD; Pregnancy, Serum, hCG Quali. NEGATIVE Negative
[2021-02-21 02:44] LABS: ALB/GLOB Ratio 0.9 RATIO (0.9-2.4); AST(SGOT) 21 U/L (15-37); Alanine Aminotransfer ALT/SGPT 38 U/L (13-56); Albumin, Serum 3.7 g/dL (3.2-5.0); Alkaline Phosphatase 58 U/L (45-117); Anion Gap 6 (5-15); BUN 12 mg/dL (7-18); BUN/Creat Ratio 20.2 RATIO (10-20); Calcium,Total 8.7 mg/dL (8.5-10.1); Chloride 108 mmol/L (98-107); EST Glomerular Filtration Rate 134 mL/min (>60); Est Glom Filt Rate - Afr Amer 163 mL/min (>60); Estimated Creatinine Clearance 138.85 ml/min; Globulin 4.1 g/dL (2.2-4.2); Glucose 100 mg/dL (74-106); Lipase 72 U/L (73-393); Potassium 3.6 mmol/L (3.5-5.1); Protein, Total 7.8 g/dL (6.4-8.2); Sodium Level 139 mmol/L (136-145)
== END 2021-02-21 03:00 | disposition home or self-care (01) ==
PROVIDERS: Emergency Provider Emergency Medicine
DX: K22.6 Gastro-esophageal laceration-hemorrhage syndrome (principal); F17.210 Nicotine dependence, cigarettes, uncomplicated; F31.9 Bipolar disorder, unspecified; Z79.899 Other long term (current) drug therapy
CPT/HCPCS: 80053; 83690; 84703; 85025; 99284; A4216

== ENCOUNTER → 2022-01-18 | Outpatient (CLI) | payer MEDICAID, SELFPAY ==
--- NOTE | 2022-01-18 14:22 | US_ITS ---
STUDY: FIRST TRIMESTER OBSTETRICAL ULTRASOUND REASON FOR EXAM: Female, 21 years old VIABILITY LMP: 11/30/2021 TECHNIQUE: Transvaginal TECHNICAL QUALITY: Adequate. PRIOR ULTRASOUND: None. FINDINGS: There is visualization of a single gestational sac in a normal intrauterine position. The mean sac diameter (MSD) measures 1.5 cm, indicating an estimated gestational age (EGA) of 6 weeks, 2 days. The gestational sac shape is within normal limits. There is a visualized yolk sac. The yolk sac measures 3.1 mm. The placenta is non-visualized. There is no demonstrated embryo ( pole). The estimated gestation age (EGA) by LMP is 7 weeks, 0 days. The estimated date of delivery (SONDRA) by LMP is 09/06/2022. The estimated gestation age (EGA) by US is 6 weeks, 2 days. The estimated date of delivery (SONDRA) by US is 09/11/2022. The uterus measures 9.2 cm x 5.7 cm x 4.4 cm. There is no demonstrated uterine fibroid. The cervix is closed. The right ovary measures 2.8 cm x 2.5 cm x 1.8 cm. There is no right ovarian cyst. There is no visualized right adnexal mass or complex lesion. The left ovary measures 3.3 cm x 2.3 cm x 2.5 cm. There is no left ovarian cyst. There is no visualized left adnexal mass or complex lesion. There is no fluid in the cul de sac. US/Transvaginal w/Preg US IMPRESSION: Intrauterine gestational sac with a mean gestational age of 6 weeks and 2 days. Electronically Signed: Inderjit Talbot MD at 15:23 EDT ,
== END | disposition home or self-care (01) ==
LOC: US 14:20
DX: N92.6 Irregular menstruation, unspecified (principal)
CPT/HCPCS: 76817

== ENCOUNTER → 2022-02-05 | Outpatient (CLI) | payer MEDICAID, SELFPAY ==
--- NOTE | 2022-02-05 12:23 | US_ITS ---
STUDY: FIRST TRIMESTER OBSTETRICAL ULTRASOUND REASON FOR EXAM: Female, 21 years old SCREENING F/U LMP: Not provided TECHNIQUE: Standard TECHNICAL QUALITY: Adequate. PRIOR ULTRASOUND: None. FINDINGS: There is visualization of a single gestational sac in a normal intrauterine position. The gestational sac shape is within normal limits. Mean sac diameter is 3.4 cm corresponding to an 8 week 4 day gestation. There is a visualized yolk sac. The yolk sac measures 0.43 cm. The placenta is non-visualized. There is visualization of a live embryo. The crown-rump length (CRL) measures 1.95 cm, indicating an estimated gestational age (EGA) of 8 weeks, 4 days. There is demonstrated cardiac activity with a heart rate of 166 bpm. Uterus measures 9.4 x 7.5 x 6.1 cm. No evidence of fibroids. Cervix is closed. Right ovary 2.0 x 1.3 x 1.6 cm. Left ovary 3.6 x 2.5 x 2.2 cm. Corpus luteum cyst left ovary 2.3 x 2.1 x 1.6 cm. The estimated date of delivery (SONDRA) by US is 09/13/2022. There is no fluid in the cul de sac. US/Transvaginal w/Preg US IMPRESSION: Single viable intrauterine gestation. Gestational age based upon crown-rump length is 8 weeks 4 days. Electronically Signed: Ketan Sotomayor MD, DEVIKA at 16:41 EDT ,
== END | disposition home or self-care (01) ==
LOC: US 12:22
DX: Z36.2 Encounter for other antenatal screening follow-up (principal)
CPT/HCPCS: 76817

== ENCOUNTER 2022-03-10 19:00 | Emergency (ER) | payer MEDICAID, SELFPAY ==
[2022-03-10 19:00] VITALS: BP 130/90; PULSE 112; RESP 18; TEMP 36; O2SAT 100; BMI 28.0
--- NOTE | 2022-03-10 19:19 | EDS_ITS ---
HPI HPI - Female History of Present Illness Chief Complaint: Abd Pain Detail of Chief Complaint: Pelvic pain. Dysuria. . Informant: patient Pain Pain: Positive for Pelvic Pain Onset: Today and Hours Context: Gradual Onset Timing: Intermittent Quality: Positive for Cramping Current Severity: Mild Maximum Severity: Mild Bleeding Issue: Negative for Vaginal bleeding, Passing clots or Passing tissue Associated Symptoms Associated Symptoms: Positive for Dysuria and Frequency; Negative for Urgency or Hematuria Test: Positive Sexually: Positive for Active Control: No control P: 0 Ab: 4 Narrative Narrative: 19-year-old female currently 13 weeks . States she is 5 para 0 with 4 prior miscarriages. She is from [place]. States that today she has had cramping. No bleeding. No dysuria. Thinks she has UTI. Denies fever. Does not know her blood type. Does not believe she has ever been given RhoGAM. Prior similar symptoms: Yes Recent Illness/Hospitalization: No PFSH PFSH Medical History ADD (attention deficit disorder) Bipolar 1 disorder Miscarriage Suicidal ideation Home Medications vits no.130-ferrous fum 27 mg iron-folic acid 800 mcg tablet ( Vitamin) 1 tab PO DAILY supplement 03/10/22 [History Last Taken 03/10/22] Allergy/AdvReac Type Severity Reaction Status Date / Time bee venom protein (honey bee) Allergy Hives Verified 02/21/21 02:15 grass pollen Allergy Itching Verified 02/21/21 02:15 peanut Allergy Anaphylaxis Verified 02/21/21 02:15 strawberry Allergy Anaphylaxis Verified 02/21/21 02:15 Social History Smoking Status: Current every day smoker tobacco type: cigarettes and e- cigarettes ROS ROS ED ROS Narrative Pelvic pain. . No bleeding. Review of Systems ROS Unobtainable: Denies due to encephalopathy Constitutional Constitutional ED: Denies chills or fever(s) Eyes Eyes: Denies blurry vision ENT ENT ED: Denies ear pain, rhinorrhea or sore throat Cardiovascular Cardiovascular: Denies chest pain Respiratory/Chest Respiratory/Chest: Denies cough or dyspnea Gastrointestinal Gastrointestinal: Reports abdominal pain; Denies constipation, diarrhea, melena, nausea or vomiting Genitourinary Genitourinary ED: Reports dysuria; Denies hematuria Musculoskeletal Musculoskeletal: Denies arthralgias Integumentary Denies abscess Neurologic Neurologic: Denies headache(s) Psychiatric Psychiatric: Denies anxiety Endocrine Endocrinology: Denies heat intolerance Hematologic/Lymphatic Hematologic/Lymphatic: Denies easy bleeding Allergic/Immunologic Allergic/Immunologic ED: Denies mouth swelling, tongue swelling or urticaria EXAM Physical Exam Narrative Exam Narrative: 21-year-old female no acute distress. Vital signs stable afebrile. Lungs clear. Heart regular rhythm rate about 110. Abdomen soft nontender. Gravid nontender uterus. No peritoneal signs. Moving all 4 extremities. Nontender no edema. Neurologic exam normal. Const Vital Signs: 03/10/22 19:00 03/10/22 19:00 Temperature 96.8 F L 96.8 F L Temperature Source Temporal Temporal Pulse Rate 112 H 112 H Respiratory Rate 18 18 Blood Pressure 130/90 H 130/90 H Blood Pressure Mean 103 103 Pulse Ox 100 100 Oxygen Delivery Method Room Air Room Air Positive well nourished and well developed; Negative for obese, cachectic, contractures or unkempt General Appearance ED: well developed and NAD; Negative for unkempt, cachectic, contractures, odor of alcohol detected or pallor Nutritional Appearance: Negative for cachectic or obese HEENT Reports moist mucous membranes; Denies dry mucous membranes Negative for trauma or tenderness Mouth ED: No dry mucous membranes Mouth: No dry mucous membranes Eyes PERRL and EOMs intact bilaterally General Eye ED: Negative for pale conjunctiva or scleral icterus Neck no lymphadenopathy, supple and no JVD General: Negative for other Thyroid: Negative for tender Lymph Lymphatic: Negative for other Chest Wall inspection of chest normal and palpation of chest normal Chest: Negative for other Resp normal respiratory effort and clear to auscultation bilaterally Effort and Inspection: Negative for pain with movement Auscultation: Negative for rales or rhonchi Cardio regular rhythm, S1 normal heart sound, no murmurs and no JVD; Negative for regular rate Rate: tachycardic Rhythm: Negative for abnormal rhythm GI normal to inspection, nondistended, normoactive bowel sounds, soft to palpation, non-tender, non-distended and no masses GI Narrative: Gravid nontender labs. Auscultation: normoactive bowel sounds Palpation: Negative for tender, guarding or rigid Back/Spine no CVA tenderness General Back: Negative for CVA tenderness Cervical Spine: Negative for cervical spine tenderness Thoracic Spine / Upper Back: Negative for thoracic spinal tenderness Lumbar Spine / Lower Back: Negative for lumbar spinal tenderness Sacrum: Negative for other Extremity normal to inspection and full ROM General Extremety ED: Negative for edema General Extremity: Negative for edema Neuro oriented x3, CN's II-XII intact bilaterally and no sensory deficits noted Sensorium / Orientation: alert, oriented to person, oriented to place and oriented to time; Negative for confused, lethargic or stuporous Motor Exam: strength 5/5 throughout Psych mental status grossly normal Appearance: Negative for unkempt Attitude: No agitated Speech: No other Mood & Affect: Negative for depressed, anxious or tearful Skin no rashes or lesions noted and no wounds General Skin Exam: Negative for jaundice or pallor Rashes: No rashes noted MDM MDM MDM Narrative Medical decision making narrative: 21-year-old female at 13 weeks. Complaining of dysuria and cramping. No bleeding. Exam benign. heart tones to be obtained. Urinalysis. Repeat exam patient doing well at 8:44 PM. Abdomen is nontender. She is having no symptoms and will be discharged to home to follow-up with [facility]. Dr. Callahan is on-call for OB I will have her follow-up with her office. Lab Data Attestation: I reviewed the patient's lab results. Lab results narrative: heart tones 165 per nursing staff. Urinalysis normal no signs of infection. Labs: Laboratory Results - last 24 hr 03/10/22 19:20 Urine Color Straw Urine Clarity Clear Urine pH 6.5 Ur Specific [place] 1.010 Urine Protein Negative Urine Glucose (UA) Normal Urine Ketones Negative Urine Occult Blood Negative Urine Nitrite Negative Urine Bilirubin Negative Urine Urobilinogen Normal Ur Leukocyte Esterase Negative Urine RBC 0 SEEN Urine WBC 0 SEEN Ur Squamous Epith Cells 0-5 SEEN Urine Bacteria 0 SEEN Urine Mucus 0 SEEN Discharge Plan Triage Chief Complaint: Abd Pain ED Provider: Diallo Chavarria Dx/Rx/DC Orders Clinical Impression: Pelvic pain, First trimester , History of multiple miscarriages Instructions: 1st Trimester, ED Pelvic Pain, Unknown Cause Prescriptions: No Action Vitamin 27 mg iron- 800 mcg tablet 1 tab PO DAILY Label Comments: TAKE 1 TABLET BY MOUTH EVERY DAY Primary Care Provider: Care Physician,No Primary Referrals: Betty Callahan MD [Med Staff - Active Staff] - As soon as possible Care Physician,No Primary [Primary Care Provider] - Activity Restrictions/Additional Instructions: Call and follow up with a local [facility]. Tylenol for pain. Your heart tones were normal tonight. Your urinalysis was normal with no signs of infection. At this time there is no signs of miscarriage. Disposition Disposition: Home, Self Care
[2022-03-10 19:54] LABS: Bacteria 0 SEEN /hpf (None Seen); Mucous, Urine 0 SEEN /hpf (<or=2+); Red Blood Cells-Urine 0 SEEN /hpf (0-5); White Blood Cells 0 SEEN /hpf (0-5)
[2022-03-10 20:13] LABS: Color, Urine Straw (Yellow); Glucose, Dipstick Normal (Normal); Ketone-Dipstick Negative (Negative); Leukocyte Esterase-Dipstick Negative /ul (Negative); Nitrite-Dipstick Negative (Negative); Occult Blood-Urine Negative /ul (Negative); Protein-Dipstick Negative (Negative); Urine Bilirubin Dipstick Negative (Negative); Urine Clarity Clear (Clear); Urine Urobilinogen Normal (Normal); Urine pH 6.5 (5.0 - 8.0)
[2022-03-10 20:20] LABS: Squamous Epithelial Cells - UA 0-5 SEEN /hpf (5-10)
== END 2022-03-10 20:51 | disposition home or self-care (01) ==
PROVIDERS: Emergency Provider Emergency Medicine; Visit Provider Emergency Medicine
DX: O26.891 Other specified pregnancy related conditions, first trimester (principal); O99.331 Smoking (tobacco) complicating pregnancy, first trimester; R10.2 Pelvic and perineal pain; F17.210 Nicotine dependence, cigarettes, uncomplicated; Z3A.13 13 weeks gestation of pregnancy
CPT/HCPCS: 81001; 99282

== ENCOUNTER → 2022-03-11 | Outpatient (CLI) | payer MEDICAID, SELFPAY ==
--- NOTE | 2022-03-11 14:50 | US_ITS ---
INDICATION: VIABILITY EXAMINATION: Ultrasound US OB Less Than 14 Weeks TECHNIQUE: Transabdominal pelvic ultrasound was performed. Grayscale, spectral waveform, and color flow Doppler evaluation of the adnexa. COMPARISON: None. LMP: [December 07, 2021 Beta-hCG: Unknown FINDINGS: There is a single intrauterine in a breech presentation. The heart rate measures 3 and 57 beats per minutes. The placenta is visualized and appears posterior. The cervix is closed and measures 3.8 cm in length. There is nonvisualization of the ovaries. There is no free fluid visualized. The crown-rump length measures 7.32 cm corresponding to a gestational age of 13 weeks and 3 days. The head circumference measures 9.26 cm corresponding to gestational age of 14 weeks and 1 day. The biparietal diameter measures 2.4 cm corresponding to a gestational age of 14 weeks and 1 day. The abdominal circumference measures 6.99 cm corresponding to gestational age of 13 weeks and 4 days. The femur length measures 1.17 cm corresponding to gestational age of 13 weeks and 3 days. Estimated weight is 78 g (+/-12 g) corresponding to the 38%. September 10, 2022. The estimated gestational age by LMP is 13 weeks and 3 days corresponding to an SONDRA of September 13, 2022. The estimated gestational age by the current ultrasound is 13 weeks and 6 days corresponding to an SONDRA of September 10, 2022. US/Init OB < 14Wks US IMPRESSION: Single live intrauterine . Estimated gestational age by ultrasound is 13 weeks and 6 days. Electronically Signed: Trina Rider MD at 10:07 [facility] ,
== END | disposition home or self-care (01) ==
LOC: US 14:49
PROVIDERS: Referring Provider Nurse Practitioner Women's Health; Visit Provider Nurse Practitioner Women's Health
DX: O36.80X0 Pregnancy with inconclusive fetal viability, not applicable or unspecified (principal); Z3A.13 13 weeks gestation of pregnancy
CPT/HCPCS: 76801

== ENCOUNTER 2022-03-31 17:11 | Emergency (ER) | payer MEDICAID, SELFPAY ==
[2022-03-31 17:12] VITALS: BP 121/84; PULSE 132; RESP 18; TEMP 37.5; O2SAT 97; BMI 27.1
--- NOTE | 2022-03-31 17:48 | EX.ED.VIS.UR ---
HPI HPI - URI History of Present Illness Chief Complaint: Cough Informant: patient Narrative Narrative: 22-year-old female presenting with cough, congestion, sore throat, body aches. Her boyfriend has similar symptoms. This started 2 days ago. She is 16 weeks . Denies abdominal pain, vaginal bleeding. Subjective fever. Prior similar symptoms: Yes Recent Illness/Hospitalization: No ROS ROS ED Constitutional Constitutional ED: Reports fever(s) and subjective Eyes Eyes: Denies change in vision ENT ENT ED: Reports rhinorrhea and sore throat Cardiovascular Cardiovascular: Denies chest pain or palpitations Respiratory/Chest Respiratory/Chest: Reports cough and dyspnea Gastrointestinal Gastrointestinal: Denies abdominal pain, diarrhea, nausea or vomiting Genitourinary Genitourinary ED: Denies dysuria Musculoskeletal Musculoskeletal: Denies myalgias Integumentary Denies rash Neurologic Neurologic: Denies headache(s) Psychiatric Psychiatric: Denies suicidal thoughts PFSH PFS Medical History ADD (attention deficit disorder) Bipolar 1 disorder Miscarriage Suicidal ideation Home Medications vits no.130-ferrous fum 27 mg iron-folic acid 800 mcg tablet ( Vitamin) 1 tab PO DAILY supplement 03/10/22 [History Last Taken 03/10/22] Allergy/AdvReac Type Severity Reaction Status Date / Time bee venom protein (honey bee) Allergy Hives Verified 03/31/22 17:12 grass pollen Allergy Itching Verified 03/31/22 17:12 peanut Allergy Anaphylaxis Verified 03/31/22 17:12 strawberry Allergy Anaphylaxis Verified 03/31/22 17:12 Social History Smoking Status: Light Smoker (<10/day) EXAM Physical Exam Const Vital Signs: 03/31/22 17:12 03/31/22 17:25 Temperature 99.5 F H Temperature Source Temporal Pulse Rate 132 H Respiratory Rate 18 Respiratory Effort Short of Breath Blood Pressure 121/84 H Blood Pressure Mean 96 Pulse Ox 97 Oxygen Delivery Method Room Air Positive well nourished and well developed General Appearance ED: well developed HEENT Reports normocephalic and head/scalp atraumatic Eyes PERRL and EOMs intact bilaterally Neck supple General: Negative for tenderness Chest Wall inspection of chest normal Resp normal respiratory effort and clear to auscultation bilaterally Cardio regular rate and regular rhythm GI non-tender and non-distended Palpation: soft; Negative for guarding or rebound tenderness present no CVA tenderness Extremity normal to inspection Neuro oriented x3 Sensorium / Orientation: alert Psych mental status grossly normal Skin Rashes: no rashes MDM MDM MDM Narrative Medical decision making narrative: Patient is not hypoxic. She was given Tylenol p.o. and p.o. challenge. COVID-negative. Influenza A positive. Patient is feeling improved in the emergency department. She declined Tamiflu. Advised to follow-up with her [employer]. Advised return to ED for worsening complaints. Lab Data Attestation: I reviewed the patient's lab results. Discharge Plan Triage Chief Complaint: Cough ED Provider: Ursula Vicente Dx/Rx/DC Orders Clinical Impression: Influenza A Instructions: ED Influenza (Adult) Prescriptions: No Action Vitamin 27 mg iron- 800 mcg tablet 1 tab PO DAILY Label Comments: TAKE 1 TABLET BY MOUTH EVERY DAY Stand Alone Forms: ED Work / School Excuse Primary Care Provider: Care Physician,No Primary Referrals: Care Physician,No Primary [Primary Care Provider] - Disposition Disposition: Home, Self Care
[2022-03-31] MEDS: Acetaminophen 325 MG Tablet 650 MG PO (18:07)
== END 2022-03-31 18:52 | disposition home or self-care (01) ==
PROVIDERS: Emergency Provider Emergency Medicine; Visit Provider Emergency Medicine
DX: O99.512 Diseases of the respiratory system complicating pregnancy, second trimester (principal); O99.332 Smoking (tobacco) complicating pregnancy, second trimester; J10.1 Influenza due to other identified influenza virus with other respiratory manifestations; F17.200 Nicotine dependence, unspecified, uncomplicated; Z3A.16 16 weeks gestation of pregnancy
CPT/HCPCS: 87428; 99283

== ENCOUNTER 2022-04-30 18:08 | Emergency (ER) | payer MEDICAID, SELFPAY ==
[2022-04-30 18:09] VITALS: BP 141/79; PULSE 117; RESP 24; TEMP 36.6; O2SAT 98; BMI 29.6
[2022-04-30 18:28] VITALS: BP 142/81; PULSE 96; RESP 18; O2SAT 100
[2022-04-30 18:29] LABS: Absolute Lymphocyte Count 1.88 X10^3/uL (0.83-4.51); Absolute Neutrophil Count 9.4 X10^3/uL (2.0-7.7); Basophil# 0.04 X10^3/uL; Basophil% 0.3 % (0-1); Eosinophils% 1.6 % (0-5); Hemoglobin 12.6 g/dL (12.0-15.0); Lymphocyte # 1.88 X10^3/ul (0.83-4.51); Lymphocyte % 15.1 % (19-41); Mean Corpuscular Hgb 32.2 pg (27.0-32.0); Mean Corpuscular Volume 92.1 fL (81-99); Mean Platelet Vol. 10.4 fl (6.2-12.0); Monocyte# 0.84 X10^3/uL; Monocyte% 6.7 % (0-10); NRBC Flagged by Analyzer 0 % (0-5); Neutrophil # 9.41 X10^3/uL (2.7-7.7); Neutrophil % 75.6 % (47-70); Platelet Count 295 K/mm3 (150-450); RBC Distribution Width CV 12.1 % (11.6-14.6); RBC Distribution Width SD 40.8 fl (35.1-43.9); Red Blood Count 3.91 M/mm3 (4.2-5.4); White Blood Count 12.5 K/mm3 (4.4-11.0)
--- NOTE | 2022-04-30 18:30 | ED.VIS.FEGU ---
HPI HPI - Female History of Present Illness Chief Complaint: Detail of Chief Complaint: , water broke Informant: patient and spouse/S.O. Pain Pain: Negative for Pelvic Pain, Vulvar Pain or Vaginal Pain Worsened by: - (Nothing) Relieved by: - (Nothing) Bleeding Issue: Positive for - (Water ruptured); Negative for Vaginal bleeding, Passing clots or Passing tissue Associated Symptoms Associated Symptoms: Positive for Frequency; Negative for Dysuria Test: Positive Sexually: Positive for Active P: 0 Ab: 3 Narrative Narrative: Patient is a 22-year-old G4, P0 AB 3 female who initially states she never been . She was under the impression since her pregnancies were less than 5 weeks that was not considered a or miscarriage. She does not know her blood type. There is no information on prior labs regarding blood type. She ate 15 minutes before presenting. She denies constitutional symptoms, HEENT symptoms, cardiac, respiratory symptoms. She has some mild abdominal discomfort. She denies back pain. Prior similar symptoms: No Recent Illness/Hospitalization: No PFSH PFSH Medical History ADD (attention deficit disorder) Bipolar 1 disorder Miscarriage Suicidal ideation Home Medications vits no.130-ferrous fum 27 mg iron-folic acid 800 mcg tablet ( Vitamin) 1 tab PO DAILY supplement 03/10/22 [History Last Taken 03/10/22] pyridoxine (vitamin B6) 100 mg tablet 100 mg PO QHS 04/30/22 [History Last Taken Unknown] Allergy/AdvReac Type Severity Reaction Status Date / Time bee venom protein (honey bee) Allergy Hives Verified 04/30/22 18:09 grass pollen Allergy Itching Verified 04/30/22 18:09 peanut Allergy Anaphylaxis Verified 04/30/22 18:09 strawberry Allergy Anaphylaxis Verified 04/30/22 18:09 Family History no significant family his Social History household members: significant other Smoking Status: Current every day smoker tobacco type: cigarettes ROS ROS ED Constitutional Constitutional ED: Denies chills, fever(s), subjective or sweats Eyes Eyes: Denies blurry vision, change in vision or diplopia ENT ENT ED: Denies ear pain or rhinorrhea Cardiovascular Cardiovascular: Denies chest pain or palpitations Respiratory/Chest Respiratory/Chest: Denies cough, dyspnea or dyspnea on exertion Gastrointestinal Gastrointestinal: Reports abdominal pain; Denies diarrhea, nausea or vomiting Genitourinary Genitourinary ED: Reports urinary frequency; Denies dysuria or hematuria Musculoskeletal Musculoskeletal: Denies arthralgias, myalgias or neck pain Integumentary Denies rash Neurologic Neurologic: Denies headache(s) Psychiatric Psychiatric: Reports anxiety Hematologic/Lymphatic Hematologic/Lymphatic: Denies easy bleeding or easy bruising EXAM Physical Exam Const Vital Signs: 04/30/22 18:09 04/30/22 18:28 04/30/22 19:33 Temperature 98 F Temperature Source Oral Pulse Rate 117 H 96 91 Respiratory Rate 24 H 18 15 Blood Pressure 141/79 H 142/81 H 127/85 H Blood Pressure Mean 99 101 99 Pulse Ox 98 100 99 Oxygen Delivery Method Room Air Room Air Room Air 04/30/22 20:27 Temperature Temperature Source Pulse Rate 83 Respiratory Rate 15 Blood Pressure 120/65 Blood Pressure Mean 83 Pulse Ox 100 Oxygen Delivery Method Room Air Positive well nourished and well developed Constitutional Narrative: Patient is very anxious. She is crying. General Appearance ED: well developed; Negative for NAD HEENT Reports moist mucous membranes HEENT Narrative: Poor dentition. Posterior pharynx is normal. Ears normal. Nares patent. Head is atraumatic normocephalic. Eyes PERRL and EOMs intact bilaterally General Eye ED: Negative for pale conjunctiva or scleral icterus Neck no lymphadenopathy, supple and no JVD Chest Wall inspection of chest normal and palpation of chest normal Resp normal respiratory effort and clear to auscultation bilaterally Cardio regular rhythm, S1 normal heart sound, no murmurs and no JVD Rate: tachycardic GI normal to inspection, nondistended, normoactive bowel sounds, soft to palpation and non-distended GI Narrative: Fundus is between the umbilicus and pelvis. heart tones were noted. Back/Spine no CVA tenderness Extremity normal to inspection Neuro oriented x3, CN's II-XII intact bilaterally and no sensory deficits noted Sensorium / Orientation: alert Skin no rashes or lesions noted and no wounds MDM MDM MDM Narrative Medical decision making narrative: Based on dates patient is 21 weeks. Fetus is not viable. heart tones were noted. Dr. Mccracken who is on-call for [employer] no doc was contacted. She will be in to see patient. Since patient blood type is unknown is no record of prior blood type ABO Rh was obtained. CBC was obtained. Review of prior records indicates she had an ultrasound on March 11 that revealed a single live intrauterine with estimated gestation of 13 weeks and 6 days. Patient was made NPO. IV was established. Per discussion with Dr. Felicia Kamara patient to be discharged. Contact office for follow-up. Lab Data Attestation: I reviewed the patient's lab results. Lab results narrative: CBC is slightly elevated. This is due to . There is no shift. Haskins amniotic fluid detection was negative. Patient has B+. Urinate is unremarkable. Labs: Laboratory Results - last 24 hr 04/30/22 04/30/22 04/30/22 18:11 18:11 19:00 WBC 12.5 H RBC 3.91 L Hgb 12.6 Hct 36.0 L MCV 92.1 MCH 32.2 H MCHC 35.0 RDW Std Deviation 40.8 RDW Coeff of Priyank 12.1 Plt Count 295 MPV 10.4 Immature Gran % (Auto) 0.700 Neut % (Auto) 75.6 H Lymph % (Auto) 15.1 L [place] % (Auto) 6.7 Eos % (Auto) 1.6 Baso % (Auto) 0.3 Absolute Neuts (auto) 9.4 H Absolute Lymphs (auto) 1.88 Nucleated RBC % 0 Urine Color Urine Clarity Urine pH Ur Specific [place] Urine Protein Urine Glucose (UA) Urine Ketones Urine Occult Blood Urine Nitrite Urine Bilirubin Urine Urobilinogen Ur Leukocyte Esterase Urine RBC Urine WBC Ur Squamous Epith Cells Urine Bacteria Urine Mucus Vag Amniotic Fld Detect Negative Blood Type B POSITIVE 04/30/22 19:20 WBC RBC Hgb Hct MCV MCH MCHC RDW Std Deviation RDW Coeff of Priyank Plt Count MPV Immature Gran % (Auto) Neut % (Auto) Lymph % (Auto) [place] % (Auto) Eos % (Auto) Baso % (Auto) Absolute Neuts (auto) Absolute Lymphs (auto) Nucleated RBC % Urine Color Straw Urine Clarity Clear Urine pH 6.5 Ur Specific [place] 1.010 Urine Protein Negative Urine Glucose (UA) Normal Urine Ketones Negative Urine Occult Blood Negative Urine Nitrite Negative Urine Bilirubin Negative Urine Urobilinogen Normal Ur Leukocyte Esterase Negative Urine RBC 0 SEEN Urine WBC 0-5 SEEN Ur Squamous Epith Cells 0-5 SEEN Urine Bacteria RARE Urine Mucus 0 SEEN Vag Amniotic Fld Detect Blood Type Discharge Plan Triage Chief Complaint: Other Complaint: Vag Bld, Preg ED Provider: Brian Thacker Dx/Rx/DC Orders Clinical Impression: Second trimester , Abdominal pain affecting , antepartum, Premature rupture of membranes Instructions: 2nd Trimester Changes Prescriptions: No Action Vitamin 27 mg iron- 800 mcg tablet 1 tab PO DAILY Label Comments: TAKE 1 TABLET BY MOUTH EVERY DAY pyridoxine (vitamin B6) 100 mg tablet 100 mg PO QHS Label Comments: TAKE 1 TABLET BY MOUTH EVERY DAY Primary Care Provider: Care Physician,No Primary Referrals: Felicia Kamara MD [Med Staff - Active Staff] - As soon as possible Care Physician,No Primary [Primary Care Provider] - Disposition Disposition: Home, Self Care
--- NOTE | 2022-04-30 19:07 | PCM.CONS.GEN ---
Assessment & Plan Assessment/Plan (1) 21 weeks gestation of : (2) Abdominal pain affecting , antepartum: PLAN: Plan 21-week high risk nulliparous patient who has not had routine care. CBC and type and screen sent. Having some cramping but no evidence of labor or rupture membranes. Send ROM plus to double check this. Also send UA. Discharge patient home for follow-up in our office this week to establish care and formal ultrasound as well as labs. Results of this consultation were discussed with emergency room physician Dr. Thacker and he agrees with plan. If evidence of rupture membrane on ROM plus will have to observe patient and reevaluate. HPI Consult Data Date of Consult: 04/30/22 HPI Narrative Reason for Consultation: Possible rupture of membranes at 21 weeks HPI Narrative: I was consulted to see this patient in the emergency room by Dr. Thacker for possible rupture of membranes in the second trimester. SARAH ROSA, is a 22 F who presents at approximately 21 weeks gestation by 13-week ultrasound who complains of large amount of fluid leaking down her leg. She denies any continued leaking. She denies any vaginal bleeding. She is feeling Canna crampy. She is felt some movement. She is only had care at the [facility]. They did 1 ultrasound here at 13 weeks 6 days to confirm her EDC. Patient denies any trauma to the abdomen, falls or car accidents. She is here with her boyfriend. Patient denies any significant medical problems including heart, kidney, lung or neurological disorders. Past surgical history is significant for repair of a broken foot as a child. Sexual history: Patient denies any history of sexually transmitted diseases Family history: Patient denies any family history of aneuploidy or other hereditary chromosomal problems. Obstetrical history: Patient thinks she is had 3 miscarriages less than 5 weeks but never had a to cardiac activity before. [facility] Medical History ADD (attention deficit disorder) Bipolar 1 disorder Miscarriage Suicidal ideation Home Medications vits no.130-ferrous fum 27 mg iron-folic acid 800 mcg tablet ( Vitamin) 1 tab PO DAILY supplement 03/10/22 [History Last Taken 03/10/22] pyridoxine (vitamin B6) 100 mg tablet 100 mg PO QHS 04/30/22 [History Last Taken Unknown] Allergy/AdvReac Type Severity Reaction Status Date / Time bee venom protein (honey bee) Allergy Hives Verified 04/30/22 18:09 grass pollen Allergy Itching Verified 04/30/22 18:09 peanut Allergy Anaphylaxis Verified 04/30/22 18:09 strawberry Allergy Anaphylaxis Verified 04/30/22 18:09 no significant family history Social History household members: significant other Smoking Status: Current every day smoker tobacco type: cigarettes Physical Exam Narrative General: Awake alert, no acute distress HEENT. Poor dentition. Extraocular movements intact. Hearing and sight grossly normal. Abdomen: Approximately 21 weeks size fundus, mild tenderness, no rebound or guarding. No hernias or masses noted. 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 Normal perineal body. Normal perianal area. Vagina with normal pink rugae, no significant cystocele or rectocele. Cervix is smooth, closed and nonfriable. There is a small amount of white physiological discharge. No pool of amniotic fluid noted. Cervix is visually closed. Brief transabdominal ultrasound is done which shows a vertex fetus of approximately 21 weeks size that is active with cardiac activity of approximately 160 bpm. There is a single fetus present. There is a normal amount of amniotic fluid present Lab / Micro Data Result Diagrams: 04/30/22 18:11 Labs: Laboratory Results - last 24 hr 04/30/22 18:11: WBC 12.5 H, RBC 3.91 L, Hgb 12.6, Hct 36.0 L, MCV 92.1, MCH 32.2 H, MCHC 35.0, RDW Std Deviation 40.8, RDW Coeff of Priyank 12.1, Plt Count 295, MPV 10.4, Immature Gran % (Auto) 0.700, Neut % (Auto) 75.6 H, Lymph % (Auto) 15.1 L, [place] % (Auto) 6.7, Eos % (Auto) 1.6, Baso % (Auto) 0.3, Absolute Neuts (auto) 9.4 H, Absolute Lymphs (auto) 1.88, Nucleated RBC % 0 04/30/22 18:11: Blood Type B POSITIVE
[2022-04-30 19:30] LABS: ROM Internal Control Test YES-OK TO RESULT pt. (Internal QC); ROM Patient Test Negative (Negative)
[2022-04-30 19:33] VITALS: BP 127/85; PULSE 91; RESP 15; O2SAT 99
[2022-04-30 19:33] LABS: Mucous, Urine 0 SEEN /hpf (<or=2+); Red Blood Cells-Urine 0 SEEN /hpf (0-5)
[2022-04-30 19:38] LABS: Color, Urine Straw (Yellow); Glucose, Dipstick Normal (Normal); Ketone-Dipstick Negative (Negative); Leukocyte Esterase-Dipstick Negative /ul (Negative); Nitrite-Dipstick Negative (Negative); Occult Blood-Urine Negative /ul (Negative); Protein-Dipstick Negative (Negative); Urine Bilirubin Dipstick Negative (Negative); Urine Clarity Clear (Clear); Urine Urobilinogen Normal (Normal); Urine pH 6.5 (5.0 - 8.0)
[2022-04-30 19:46] LABS: Bacteria RARE /hpf (None Seen); Squamous Epithelial Cells - UA 0-5 SEEN /hpf (5-10); White Blood Cells 0-5 SEEN /hpf (0-5)
[2022-04-30 20:27] VITALS: BP 120/65; PULSE 83; RESP 15; O2SAT 100
[2022-04-30 21:12] VITALS: BP 120/65; PULSE 81; RESP 15; O2SAT 100
== END 2022-04-30 21:13 | disposition home or self-care (01) ==
PROVIDERS: Obstetrics & Gynecology; Emergency Provider Emergency Medicine; Visit Provider Emergency Medicine
DX: O42.912 Preterm premature rupture of membranes, unspecified as to length of time between rupture and onset of labor, second trimester (principal); O99.332 Smoking (tobacco) complicating pregnancy, second trimester; O99.891 Other specified diseases and conditions complicating pregnancy; R10.9 Unspecified abdominal pain; F17.210 Nicotine dependence, cigarettes, uncomplicated; Z3A.21 21 weeks gestation of pregnancy
CPT/HCPCS: 81001; 84112; 85025; 86900; 86901; 99283

== ENCOUNTER 2022-07-16 19:04 | Outpatient (CLI) | payer MEDICAID, SELFPAY ==
[2022-07-16 19:16] VITALS: BP 118/69; PULSE 91; TEMP 36.8; O2SAT 97
[2022-07-16 19:31] VITALS: BMI 30.7
[2022-07-16 19:50] LABS: ROM Internal Control Test YES-OK TO RESULT pt. (Internal QC)
[2022-07-16 19:51] LABS: ROM Patient Test Negative (Negative)
[2022-07-16] MEDS: Lactated Ringers 1,000 ML 999 ML IV (20:10)
[2022-07-16] MEDS: Acetaminophen 500 MG Tablet 1000 MG PO (20:25)
[2022-07-16 20:26] LABS: Bacteria 0 SEEN /hpf (None Seen); Mucous, Urine 0 SEEN /hpf (<or=2+); Red Blood Cells-Urine 0 SEEN /hpf (0-5)
[2022-07-16 20:29] LABS: Absolute Lymphocyte Count 1.84 X10^3/uL (0.83-4.51); Absolute Neutrophil Count 8.9 X10^3/uL (2.0-7.7); Basophil# 0.03 X10^3/uL; Basophil% 0.3 % (0-1); Eosinophil# 0.17 X10^3/uL; Eosinophils% 1.4 % (0-5); Hematocrit 33.1 % (37-47); Hemoglobin 11.7 g/dL (12.0-15.0); Lymphocyte # 1.84 X10^3/ul (0.83-4.51); Lymphocyte % 15.7 % (19-41); Mean Corp Hgb Conc 35.3 g/dL (32-36); Mean Corpuscular Hgb 32.7 pg (27.0-32.0); Mean Corpuscular Volume 92.5 fL (81-99); Mean Platelet Vol. 10.3 fl (6.2-12.0); Monocyte# 0.78 X10^3/uL; Monocyte% 6.6 % (0-10); NRBC Flagged by Analyzer 0 % (0-5); Neutrophil # 8.86 X10^3/uL (2.7-7.7); Neutrophil % 75.6 % (47-70); Platelet Count 275 K/mm3 (150-450); RBC Distribution Width CV 11.8 % (11.6-14.6); RBC Distribution Width SD 39.6 fl (35.1-43.9); Red Blood Count 3.58 M/mm3 (4.2-5.4); White Blood Count 11.7 K/mm3 (4.4-11.0)
[2022-07-16 20:47] LABS: International Normalized Ratio 1.1; Prothrombin Time (Protime)PT. 13.8 SECONDS (11.7-14.9)
[2022-07-16 20:48] LABS: Fibrinogen 504 mg/dl (203-444); Partial Thromboplast Time 27.8 Seconds (24.1-36.2)
[2022-07-16 20:49] LABS: ALB/GLOB Ratio 0.6 RATIO (0.9-2.4); AST(SGOT) 13 U/L (15-37); Alanine Aminotransfer ALT/SGPT 17 U/L (13-56); Albumin, Serum 2.7 g/dL (3.2-5.0); Alkaline Phosphatase 102 U/L (45-117); Amylase 45 U/L (25-115); Anion Gap 8 (5-15); BUN 3 mg/dL (7-18); BUN/Creat Ratio 6.2 RATIO (10-20); Chloride 109 mmol/L (98-107); Creatinine, Serum 0.48 mg/dL (0.55-1.02); EST Glomerular Filtration Rate 170 mL/min (>60); Est Glom Filt Rate - Afr Amer 205 mL/min (>60); Estimated Creatinine Clearance 164.02 ml/min; Globulin 4.2 g/dL (2.2-4.2); Glucose 111 mg/dL (74-106); Lipase 97 U/L (73-393); Potassium 3.3 mmol/L (3.5-5.1); Protein, Total 6.9 g/dL (6.4-8.2); Sodium Level 139 mmol/L (136-145)
[2022-07-16 20:58] LABS: Glucose, Dipstick Normal (Normal); Ketone-Dipstick Negative (Negative); Leukocyte Esterase-Dipstick 25 /ul (Negative); Nitrite-Dipstick Negative (Negative); Occult Blood-Urine Negative /ul (Negative); Protein-Dipstick Negative (Negative); Urine Bilirubin Dipstick Negative (Negative); Urine Urobilinogen Normal (Normal)
[2022-07-16 20:59] LABS: Color, Urine Yellow (Yellow); Urine Clarity Clear (Clear)
[2022-07-16 21:00] LABS: Squamous Epithelial Cells - UA 0-5 SEEN /hpf (5-10); White Blood Cells 0-5 SEEN /hpf (0-5)
[2022-07-16] MEDS: Potassium Chloride Oral Tablet 20 MEQ PO (21:43)
--- NOTE | 2022-07-19 08:41 | OB.TRI.NOTE ---
HPI - General General Date of Admission: 07/16/22 Date of Service: 07/16/22 Chief Complaint: leaking of fluid HPI Narrative SARAH ROSA, is a 22 F who presented to L&D c/o possible leaking of fluid and LUQ pain. PFSH PFS Medical History ADD (attention deficit disorder) Bipolar 1 disorder Miscarriage Suicidal ideation Home Medications vits no.130-ferrous fum 27 mg iron-folic acid 800 mcg tablet ( Vitamin) 1 tab PO DAILY supplement 03/10/22 [History Last Taken 03/10/22] pyridoxine (vitamin B6) 100 mg tablet 100 mg PO QHS 04/30/22 [History Last Taken Unknown] Allergy/AdvReac Type Severity Reaction Status Date / Time bee venom protein (honey bee) Allergy Hives Verified 04/30/22 18:09 grass pollen Allergy Itching Verified 04/30/22 18:09 peanut Allergy Anaphylaxis Verified 04/30/22 18:09 strawberry Allergy Anaphylaxis Verified 04/30/22 18:09 Social History household members: significant other Smoking Status: Current every day smoker tobacco type: cigarettes NST FHR Rate Baby A Baseline: 130 Variability:: Moderate Accelerations:: 15 x 15 Decelerations:: None NST Reactive:: Yes FHR Category:: Category I Uterine Activity:: no regular ctxs Assessment & Plan (1) High-risk in third trimester: PLAN: Plan 31-4/7 weeks gestation for rule out rupture membranes. No rupture evidence of rupture membranes. Also complaining of some abdominal pain. Patient had a complete metabolic panel amylase lipase and coags as well as a urinalysis that were negative. She also had a normal CBC for . Patient was discharged home with symptomatic measures. No evidence of labor. Follow-up in the office as scheduled or as needed.
== END 2022-07-16 21:50 | disposition home or self-care (01) ==
LOC: WPOUT 19:08 → WP 19:08
PROVIDERS: Referring Provider Advanced Practice Midwife; Visit Provider Advanced Practice Midwife
DX: O99.891 Other specified diseases and conditions complicating pregnancy (principal); O99.333 Smoking (tobacco) complicating pregnancy, third trimester; R10.12 Left upper quadrant pain; F17.210 Nicotine dependence, cigarettes, uncomplicated; Z3A.31 31 weeks gestation of pregnancy
CPT/HCPCS: 96365; 36415; 59025; 59050; 80053; 81001; 82150; 83690; 84112; 85025; 85384; 85610; 85730; 87086; 87088; 99221; J7120; G0378

== ENCOUNTER 2022-09-04 19:15 | Inpatient (IN) | payer MEDICAID, SELFPAY ==
[2022-09-04] MEDS: Lactated Ringers 1,000 ML 50 ML IV (20:15)
[2022-09-04 20:27] VITALS: BMI 32.1
[2022-09-04 20:45] LABS: Absolute Lymphocyte Count 1.55 X10^3/uL (0.83-4.51); Absolute Neutrophil Count 7.8 X10^3/uL (2.0-7.7); Basophil# 0.03 X10^3/uL; Basophil% 0.3 % (0-1); Eosinophil# 0.18 X10^3/uL; Eosinophils% 1.7 % (0-5); Hematocrit 31.9 % (37-47); Hemoglobin 10.6 g/dL (12.0-15.0); Lymphocyte # 1.55 X10^3/ul (0.83-4.51); Lymphocyte % 14.8 % (19-41); Mean Corp Hgb Conc 33.2 g/dL (32-36); Mean Corpuscular Volume 93.3 fL (81-99); Mean Platelet Vol. 11.2 fl (6.2-12.0); Monocyte# 0.82 X10^3/uL; Monocyte% 7.8 % (0-10); NRBC Flagged by Analyzer 0 % (0-5); Neutrophil # 7.83 X10^3/uL (2.7-7.7); Neutrophil % 74.6 % (47-70); Platelet Count 286 K/mm3 (150-450); RBC Distribution Width CV 12.2 % (11.6-14.6); RBC Distribution Width SD 40.9 fl (35.1-43.9); Red Blood Count 3.42 M/mm3 (4.2-5.4); White Blood Count 10.5 K/mm3 (4.4-11.0)
[2022-09-04] MEDS: 0.9% Normal Saline Single 100 ML IV.SOLN. INTRA-UTER (20:49)
--- NOTE | 2022-09-04 20:52 | HP.PCM.OB_ITS ---
HPI - General General Date of Admission: 09/04/22 HPI Narrative SARAH ROSA, is a 22 F at 38.5 weeks gestation who presents for scheduled induction of labor for GDM A2. Patient has been uncontrolled and non compliant since diagnosis. Maternal Data Information SONDRA Calculator Estimated Delivery Date Method Current WG Current Estimate 09/13/22 Manual 38w 5d PFSH PFSH Medical History ADD (attention deficit disorder) Anxiety Bipolar 1 disorder Gestational diabetes Miscarriage Suicidal ideation Home Medications vits no.130-ferrous fum 27 mg iron-folic acid 800 mcg tablet ( Vitamin) 1 tab PO DAILY supplement 03/10/22 [History Last Taken 09/04/22 09:00] pyridoxine (vitamin B6) 100 mg tablet 100 mg PO QHS Check with primary doctor 04/30/22 [History Last Taken 09/04/22 09:00 100 mg] metformin Check with primary doctor 09/04/22 [History Last Taken 09/03/22 09:00] Allergy/AdvReac Type Severity Reaction Status Date / Time bee venom protein (honey bee) Allergy Hives Verified 04/30/22 18:09 grass pollen Allergy Itching Verified 04/30/22 18:09 peanut Allergy Anaphylaxis Verified 04/30/22 18:09 strawberry Allergy Anaphylaxis Verified 04/30/22 18:09 Surgical History History of surgery Social History household members: significant other Smoking Status: Current every day smoker tobacco type: cigarettes Visit Details OB Flowsheet Initial Weight: Not Recorded Date -?-?-?-?-?-?-?-?-?-?-?-?- EGA Weight BP Urine Prot -?-?-?-?-?-?-?-?-?-?-?-?- Glucose FHR FuHt Pres Dilation -?-?-?-?-?-?-?-?-?-?-?-?- Effaced St Visit Note 09/04/22 -?-?-?-?-?-?-?-?-?-?-?-?- 38w 5d 199 lb 1.239 oz -?-?-?-?-?-?-?-?-?-?-?-?- -?-?-?-?-?-?-?-?-?-?-?-?- ROS Eyes Eyes: Denies blurry vision, change in vision or spots in vision ENT HEENT: Denies dizziness or headache(s) Cardiovascular Cardiovascular: Denies abdominal pain, chest pain or dyspnea Respiratory/Chest Respiratory/Chest: Denies cough, dyspnea, shortness of breath at rest or shortness of breath with exertion Gastrointestinal Gastrointestinal: Denies abdominal pain, diarrhea or vomiting Genitourinary Genitourinary: Denies change in urinary stream, difficulty urinating or dysuria Musculoskeletal Musculoskeletal: Reports none Integumentary Integumentary: Denies rash Neurologic Neurologic: Denies dizziness, headache(s), memory loss or weakness Psychiatric Psychiatric: Reports none Vital Signs Vital Signs Vital Signs: Weight Weight: 199 lb 1.239 oz Body Mass Index (BMI) 32.1 Physical Exam Const alert, oriented x3 and no apparent distress General Appearance: cooperative Orientation / Consciousness: awake Exam Limitations: no limitations HEENT normocephalic Head and Scalp: normal to inspection Eyes General Eye: normal appearance of both eyes Neck full ROM and no lymphadenopathy Lymph Lymphatic: no lymphadenopathy noted Chest inspection of chest normal Resp normal respiratory effort, normal air movement and clear to auscultation bilaterally Effort and Inspection: able to speak in complete sentences and symmetric chest movement Cardio regular rate and regular rhythm GI normal to inspection, nondistended, normoactive bowel sounds Manual OB Exam: presentation cephalic, dilated 1, effaced 60 and station - 2 and 0 Back/Spine normal ROM Extremity full ROM and no calf tenderness Skin no rashes or lesions noted General Skin Exam: no breakdown Neuro oriented x3 and CN's II-XII intact bilaterally Psych mental status grossly normal and thought process normal Labs Labs Labs: Blood Type B POSITIVE Hct 31.9 % (37-47) L Hgb 10.6 g/dL (12.0-15.0) L Obstetrics US GBS unknown- pending from office Assessment & Plan (1) High-risk in third trimester: (2) 38 weeks gestation of : (3) GDM, class A2: (4) History of ADHD: (5) History of bipolar disorder: (6) Encounter for induction of labor: (7) Tobacco smoking affecting : PLAN: Plan CE - /-2 Angela bulb placed without difficulty and filled with 30 cc N/S Start Cytotec 25 mcg PO every 4 hours x 6 doses total GBS unknown- Start PCN 5 million units IV x 1 dose, then PCN 3 million units IV every 4 hours until delivery Start Diabetes protocol Dr. Kamara notified of admission and is collaborating physician
[2022-09-04] MEDS: miSOPROStol 25 MCG TABLET PO (21:19)
[2022-09-04 21:25] VITALS: BP 132/84; PULSE 88; TEMP 36.3; O2SAT 99
[2022-09-04 21:39] LABS: Syphilis Antibodies Non-reactive
[2022-09-04 21:56] LABS: Bedside Glucose 92 mg/dL (74-106)
[2022-09-04 22:45] LABS: Bedside Glucose 110 mg/dL (74-106)
[2022-09-05] VITALS (51 sets, daily range): BP systolic 102–146; BP diastolic 59–92; PULSE 65–100; TEMP 35.7–36.8; O2SAT 92–100
[2022-09-05] MEDS: miSOPROStol 25 MCG TABLET PO (01:37)
[2022-09-05 03:52] LABS: Bedside Glucose 93 mg/dL (74-106)
[2022-09-05] MEDS: Oxytocin 15 Units/NS 250ml 15 UNITS/250 ML IV.SOLN 2 UNITS IV (05:52)
[2022-09-05 07:10] LABS: Bedside Glucose 85 mg/dL (74-106)
[2022-09-05] MEDS: LACTATED RINGERS 500 ML 999 ML IV (07:22)
[2022-09-05] MEDS: fentaNYL-bupivacaine (epidural) 100 ML BAG EPIDURAL ×2 (08:29→13:54)
--- NOTE | 2022-09-05 09:03 | PCM.PN.OB ---
Subjective Subjective Resting in bed, comfortable with epidural. Objective Data Objective Data Vital Signs: Vital Signs Temp Pulse BP Pulse Ox 97.2 F L 85 130/79 H 99 09/05/22 08:26 09/05/22 08:49 09/05/22 08:49 09/05/22 08:30 Weight: 199 lb 1.239 oz Body Mass Index (BMI) 32.1 Intake & Output: Intake and Output for Last 24 Hours 09/03/22 09/04/22 09/05/22 23:59 23:59 23:59 Intake Total 1059.57 / 1059.57 Balance 1059.57 / 1059.57 Lab / Micro Data Result Diagrams: 09/04/22 20:20 Labs: Laboratory Results - last 24 hr 09/04/22 20:20: WBC 10.5, RBC 3.42 L, Hgb 10.6 L, Hct 31.9 L, MCV 93.3, MCH 31.0, MCHC 33.2, RDW Std Deviation 40.9, RDW Coeff of Priyank 12.2, Plt Count 286, MPV 11.2, Immature Gran % (Auto) 0.800, Neut % (Auto) 74.6 H, Lymph % (Auto) 14.8 L, [place] % (Auto) 7.8, Eos % (Auto) 1.7, Baso % (Auto) 0.3, Absolute Neuts (auto) 7.8 H, Absolute Lymphs (auto) 1.55, Nucleated RBC % 0 09/04/22 20:20: Blood Type B POSITIVE, Antibody Screen NEGATIVE 09/04/22 20:20: Syphilis Total Ab Non-reactive 09/04/22 21:31: POC Glucose 92 09/04/22 22:25: POC Glucose 110 H 09/05/22 02:22: POC Glucose 93 09/05/22 06:48: POC Glucose 85 Physical Exam Manual OB Exam: presentation cephalic, dilated 5cm, effaced 50, station -1 and other AROM for clear fluid NST FHR Rate Baby A Baseline: 145 Variability:: Moderate Accelerations:: 15 x 15 Decelerations:: None FHR Category:: Category I Uterine Activity:: Irregular Assessment & Plan (1) GDM, class A2: (2) 38 weeks gestation of : (3) High-risk in third trimester: (4) Encounter for induction of labor: PLAN: Plan 1) Labor progressing 2) Continuous EFM 3) Pitocin per protocol 4) AROM 5) Epidural for pain management 6) notified of patient status, collaborative physician
[2022-09-05] MEDS: Lactated Ringers 1,000 ML 200 ML IV ×2 (10:24→15:09)
[2022-09-05 10:55] LABS: Bedside Glucose 82 mg/dL (74-106)
[2022-09-05 15:00] LABS: Bedside Glucose 65 mg/dL (74-106)
--- NOTE | 2022-09-05 16:11 | PCM.PN.BLA ---
Progress Note At bedside in OR with patient and nurses at bedside. Assessment & Plan Assessment/Plan (1) Tobacco smoking affecting : (2) Encounter for induction of labor: PLAN: Called for OB ERT. Pt was in the OR and pitocin off and resuscitative measures started by nursing staff. Dr. Almendarez had evaluated patient and she was 8-9 cm dilated on her exam and FHT recovered. FHT was 115 bpm and prolonged decel for 8-9 min in the 80-90 bpm. Once I was present in the OR FHT 115 bpm/mod mir/no accels/+1 late and 2 early decels. Rechecked pt and 9/90/0 with acceleration with scalp stim. Anticipate vaginal delivery and deceleration secondary to quick labor progress. (3) History of bipolar disorder: (4) History of ADHD: (5) GDM, class A2: (6) 38 weeks gestation of : (7) High-risk in third trimester:
[2022-09-05 16:35] LABS: Bedside Glucose 72 mg/dL (74-106)
[2022-09-05 17:56] LABS: Bedside Glucose 71 mg/dL (74-106)
--- NOTE | 2022-09-05 18:42 | EX.PCM.OBRPT ---
Assessment & Plan (1) Vaginal delivery: (2) Second degree perineal laceration: Maternal Data Information SONDRA Calculator Estimated Delivery Date Method Current WG Current Estimate 09/13/22 Manual 38w 6d Vaginal Delivery Maternal Presentation Maternal Presentation: Medically Indicated Induction Type of Induction: Pitocin and Angela Bulb Medical Reason for Induction: - (gestational diabetes) Operative Information Date of Procedure: 09/05/22 Estimated Blood Loss: 200ml Time of Delivery: 18:15 Findings Description of Procedure: Progressed to complete with urge to push. Epidural for pain management. heart rate decelerations down to 40-50 but then recovered to baseline 115-120s. present on unit and watching heart tracing. of viable male infant over 2nd degree perineal laceration. APGARS 8,9 respectively. head delivered with body immediately forthcoming. Placed on maternal abdomen, strong cry. Mouth and nares suctioned for secretions. Pitocin started for active 3rd stage management. Cord doubly clamped and cut by FOB after pulsations ceased, delayed cord clamping. Placenta delivered intact via yung, 3 vessel cord intact. Perineum inspected and revealed 2nd degree perineal laceration. Repaired with 3.0 vicryl rapide and epidural. Fundus firm and hemostasis achieved. EBL 200ml. Mom and baby stable, planning to breastfeed. Family bonding well. present at delivery. Presentation: Vertex Amniotic Membrane Rupture Type: Spontaneous Amniotic Fluid Description: Clear Placental Delivery Description: Spontaneous Placenta Disposition: [facility] Cord Vessel Description: 3 Vessels Cord Entanglement: Around neck x 2, loose Nuchal Cord Compression: Without compression Infant A Gender: Male (1 minute): 7 (5 minute): 9 Delayed Cord Clamping: No Post Vaginal Delivery Medications Given After Delivery: IV Pitocin Episiotomy Description: None Laceration: Perineal Extension/lac and 2nd degree Complication Complications: None
[2022-09-05] MEDS: Oxytocin 15 Units/NS 250ml 15 UNITS/250 ML IV.SOLN 83 UNITS IV (18:59)
[2022-09-05] MEDS: Ibuprofen 600 MG Tablet PO (19:38)
[2022-09-05 19:51] LABS: Bedside Glucose 70 mg/dL (74-106)
[2022-09-05] MEDS: Acetaminophen 500 MG Tablet 1000 MG PO (20:19)
[2022-09-06 00:28] VITALS: BP 101/62; PULSE 106; RESP 16; TEMP 37.1; O2SAT 99
[2022-09-06] MEDS: Acetaminophen 500 MG Tablet 1000 MG PO ×3 (03:51→17:24)
[2022-09-06 03:53] VITALS: BP 114/61; PULSE 105; RESP 16; TEMP 36.7; O2SAT 95
[2022-09-06 06:34] LABS: Bedside Glucose 105 mg/dL (74-106)
[2022-09-06] MEDS: Ibuprofen 600 MG Tablet PO (07:17)
--- NOTE | 2022-09-06 08:52 | PN.OBGYN_ITS ---
Subjective Subjective Patient seen at bedside. Feeling good. Denies any pain. Ambulating and voiding without difficulty. Lochia decreasing. Objective Data Objective Data Vital Signs: Vital Signs Temp Pulse Resp BP Pulse Ox O2 Del Method 98.1 F 105 H 16 114/61 95 Room Air 09/06/22 03:53 09/06/22 03:53 09/06/22 03:53 09/06/22 03:53 09/06/22 03:53 09/06/22 03:53 Oxygen Delivery Method Room Air Weight: 199 lb 1.239 oz Body Mass Index (BMI) 32.1 Intake & Output: Intake and Output for Last 24 Hours 09/04/22 09/05/22 09/06/22 23:59 23:59 23:59 Intake Total 3950.00 / 3950.00 Output Total 2900 / 2900 100 / 100 Balance 1050.00 / 1050.00 -100 / -100 Lab / Micro Data Result Diagrams: 09/04/22 20:20 Labs: Laboratory Results - last 24 hr 09/05/22 10:21: POC Glucose 82 09/05/22 14:35: POC Glucose 65 L 09/05/22 16:18: POC Glucose 72 L 09/05/22 17:37: POC Glucose 71 L 09/05/22 19:30: POC Glucose 70 L 09/06/22 06:14: POC Glucose 105 ROS Eyes Eyes: Denies blurry vision, change in vision or spots in vision ENT HEENT: Denies dizziness or headache(s) Cardiovascular Cardiovascular: Denies abdominal pain, chest pain or dyspnea Respiratory/Chest Respiratory/Chest: Denies cough, dyspnea, shortness of breath at rest or short ness of breath with exertion Gastrointestinal Gastrointestinal: Denies abdominal pain, diarrhea or vomiting Genitourinary Genitourinary: Denies change in urinary stream, difficulty urinating or dysuria Musculoskeletal Musculoskeletal: Reports none Integumentary Integumentary: Denies rash Neurologic Neurologic: Denies dizziness, headache(s), memory loss or weakness Physical Exam Const alert and no apparent distress General Appearance: cooperative and comfortable Exam Limitations: no limitations HEENT normocephalic Eyes General Eye: normal appearance of both eyes Neck full ROM General: normal visual inspection Chest Chest: symmetrical chest wall rise Resp normal respiratory effort and normal air movement Effort and Inspection: symmetric chest movement Auscultation: clear to auscultation bilaterally Cardio regular rate and regular rhythm GI normal to inspection, nondistended, normoactive bowel sounds Back/Spine normal ROM Extremity full ROM and no calf tenderness General Extremity: normal exam except as noted Skin no rashes or lesions noted Neuro CN's II-XII intact bilaterally Psych mental status grossly normal Assessment & Plan (1) Second degree perineal laceration: (2) Vaginal delivery: PLAN: Plan PPD 1 Formula feeding Pain control Routine care Desires discharge home tomorrow
[2022-09-06 08:55] VITALS: BP 114/75; RESP 16; TEMP 36.7
--- NOTE | 2022-09-06 10:00 | CASEMGMT ---
Social Work Assessment Labor and Delivery Unit Patient Address: [address] [place] [address] [facility] Phone number: [phone] Date of Referral: 09/05/22 Time of Referral:? 21:55 Referred By: EULOGIO Espinoza Date of Intervention: 09/06/22? Time of Intervention:? 10 Reason for Referral: hx of ADHD, anxiety History obtained from: medical records, mother of baby (MOB) Household composition: MOB reports she and FOB rent a two bedroom apartment with NB and cat Dulce. No housing concerns. Patient's parent/guardian status: MOB reports she has been with MARLENA Diallo, for three years. FOB is actively involved with MOB and NB, with a [id number] child in [facility], however, MOB reports his child?s mother planned their son in foster care and FOB is trying to get visitation rights. MOB reports no concerns of DV, AOD or MH for FOB. Medical History: MOB was engaged in care with [facility] beginning at 20 weeks and reports going to [facility] starting at 5 weeks. This is MOB?s first , NB is baby sabas Rivera, born [birth year], apgars 7/9, weighing 3290g. MOB report NB?s receptionist telephone operator will be MD Ryan, plan is to breast and bottle feed and utilized IUD for control. Educational Status: MOB reports highest level of education is HS diploma, no learning concerns. Financial Status: MOB reports she is employed at [employer] and will be off for three months. FOB is employed interactive multimedia designer and plans to use a week of vacation to be home with NB and MOB. No financial concerns reported. Infant Supplies: MOB reports having all the supplies needed including a car seat, bassinet in their bedroom, clothes and diapers/wipes. MOB reports NB will transition to their own room when appropriate. Childcare/Caregiver(s): MOB reports she will be home with NB for 3 months and then FOB?s mother will be watching NB. Transportation: MOB report they have a vehicle, no concerns. ?? Programs/Agencies Involved: ??MOB is receiving JFS services and requesting a referral for [facility] and WIC. ? Children Services/Legal Issues: None reported??? Behavioral Health Issues: ??Mental Health History:? MOB reports history of ADHD and anxiety and is engaged in counseling and psychiatric services with [facility]. MOB reports being prescribed Rittalin but unsure of anxiety medication. MOB plans to contact [facility] to schedule appointments with her counselor and psychiatrist. No AOD but current smoker. Family/Social Stressors:? No stressors identified. Support Systems: MOB reports she is supported by FOB, FOB?s family and MOBs mother and sister. Depression/Shaken Baby/Safe Sleeping: NATHALY educated MOB on depression/anxiety as well as shaken baby and safe sleep. MOB report NB will be sleeping in a basinet beside their bed but has a crib in his nursey to transition to when he is older. SW provided MOB with educational information as well as resources on the topics. MOB report understanding and voice no other needs. SW encouraged MOB to contact OB or PCP if she is concerned with symptoms. ??? ASSESSMENT:? NATHALY met with MOB and introduced herself and role as [facility] [employer]. MOB in agreement to speak with SW. SW utilized open and close ended questions to gather information needed for an assessment. MOB report having supplies needed, identified supports, is engaged in counseling services and psychiatric services, as well as JFS and requesting referral for [facility] and WIC. MOB reports history of ADHD and anxiety and plans to continues services with [facility]. SW educated MOB on safe sleep, shaken baby and PPD/A. SW also provided local resources for [facility]. SW educated MOB on secondhand smoke and assisted MOB in developing safe plan for NB. MOB reports NB will be placed with FOB or sober patient care while MOB smokes outside and MOB will wash hands as well as change clothes before returning to care for NB. NATHALY updated RN of resources provided, no concerns. Referral for [facility] and WIC made PLAN:? ?No other services requested or indicated. Maryan David BEHAVIORAL HEALTH DIRECTOR, [facility]
[2022-09-06 13:10] VITALS: BP 132/81; PULSE 96; RESP 16; TEMP 36.7
[2022-09-06] MEDS: Benzocaine/Lanolin/Aloe Vera 1 SPRAY EACH TOPICAL (13:26)
[2022-09-06 17:25] VITALS: BP 123/76; PULSE 85; RESP 16; TEMP 36.6
[2022-09-06 20:52] VITALS: BP 132/76; PULSE 93; RESP 18; TEMP 36.7
[2022-09-07] MEDS: Acetaminophen 500 MG Tablet 1000 MG PO (01:11)
[2022-09-07 02:11] VITALS: BP 121/69; PULSE 82; RESP 16; TEMP 36.9; O2SAT 97
[2022-09-07 08:00] VITALS: BP 126/79; PULSE 103; RESP 16; TEMP 36.6; O2SAT 98
--- NOTE | 2022-09-07 08:52 | PCM.PN.OB ---
Subjective Subjective Patient seen at bedside. Ambulating and voiding without difficulty. Formula feeding. Denies pain. Denies any headache, vision changes, dizziness, SOB or CP. Desires discharge home today. Objective Data Objective Data Vital Signs: Vital Signs Temp Pulse Resp BP Pulse Ox O2 Del Method 97.8 F 103 H 16 126/79 H 98 Room Air 09/07/22 08:00 09/07/22 08:00 09/07/22 08:00 09/07/22 08:00 09/07/22 08:00 09/07/22 08:00 Oxygen Delivery Method Room Air Weight: 199 lb 1.239 oz Body Mass Index (BMI) 32.1 Intake & Output: Intake and Output for Last 24 Hours 09/05/22 09/06/22 09/07/22 23:59 23:59 23:59 Intake Total 3950.00 / 3950.00 Output Total 2900 / 2900 100 / 100 Balance 1050.00 / 1050.00 -100 / -100 Lab / Micro Data Result Diagrams: 09/04/22 20:20 ROS Eyes Eyes: Denies blurry vision, change in vision or spots in vision ENT HEENT: Denies dizziness or headache(s) Cardiovascular Cardiovascular: Denies abdominal pain, chest pain or dyspnea Respiratory/Chest Respiratory/Chest: Denies cough, dyspnea, shortness of breath at rest or shortness of breath with exertion Gastrointestinal Gastrointestinal: Denies abdominal pain, diarrhea or vomiting Genitourinary Genitourinary: Denies change in urinary stream, difficulty urinating or dysuria Musculoskeletal Musculoskeletal: Reports none Integumentary Integumentary: Denies rash Neurologic Neurologic: Denies dizziness, headache(s), memory loss or weakness Physical Exam Const alert and no apparent distress General Appearance: cooperative and comfortable Exam Limitations: no limitations HEENT normocephalic Eyes General Eye: normal appearance of both eyes Neck full ROM General: normal visual inspection Chest Chest: symmetrical chest wall rise Resp normal respiratory effort and normal air movement Effort and Inspection: symmetric chest movement Auscultation: clear to auscultation bilaterally Cardio regular rate and regular rhythm GI normal to inspection, nondistended, normoactive bowel sounds Back/Spine normal ROM Extremity full ROM and no calf tenderness General Extremity: normal exam except as noted Skin no rashes or lesions noted Neuro CN's II-XII intact bilaterally Psych mental status grossly normal Assessment & Plan (1) Second degree perineal laceration: (2) Vaginal delivery: (3) Tobacco smoking affecting : PLAN: Plan PPD 2 Routine care Pain control D/C home with follow up in office
--- NOTE | 2022-09-07 08:55 | DCINST_ITS ---
Discharge Instructions Diet Discharge Diet: No restrictions Activity Discharge Activity: Return to Normal Activity, May Shower and May Take a Tub Bath May resume sexual activity in: 4-6 weeks Weight Bearing Status: Weight bearing as tolerated Dressing / Incision Call your doctor if you observe: Fever of 101 or Higher, Inability to urinate, Using more than 1 pad per hour, Shortness of breath, Dizziness, Swelling in the ankles, Chest pain, Calf discomfort and Uncontrolled pain Follow Up Care Please Follow Up With: Luz Cummings CNM When: Within 10 days Test Results: Test results from this visit will be discussed in further detail at your follow- up appointment, if applicable. Discharge Plan Admission Admit Date/Time: 09/04/22 19:15 Primary Reason for Your Visit: Labor and Delivery Attending Provider: Jacqueline Espinoza Primary Care Provider: Care Physician,Oksana Primary Discharge Orders/Prescriptions Prescriptions: Continued Vitamin 27 mg iron- 800 mcg tablet 1 tab PO DAILY Label Comments: TAKE 1 TABLET BY MOUTH EVERY DAY Discontinued pyridoxine (vitamin B6) 100 mg tablet 100 mg PO QHS Label Comments: TAKE 1 TABLET BY MOUTH EVERY DAY metformin Referrals / Follow Up: Care Physician,No Primary [Primary Care Provider] - Disposition Disposition (needs filled in before D/C Order can be placed): Home, Self Care
== END 2022-09-07 09:30 | disposition home or self-care (01) | DRG 560 ==
PROVIDERS: Advanced Practice Midwife; Admitting Provider Advanced Practice Midwife; Visit Provider Advanced Practice Midwife
DX: O76 Abnormality in fetal heart rate and rhythm complicating labor and delivery (principal); Z37.0 Single live birth; O24.425 Gestational diabetes mellitus in childbirth, controlled by oral hypoglycemic drugs; F17.210 Nicotine dependence, cigarettes, uncomplicated; O26.23 Pregnancy care for patient with recurrent pregnancy loss, third trimester; O99.334 Smoking (tobacco) complicating childbirth; O70.1 Second degree perineal laceration during delivery; O69.81X0 Labor and delivery complicated by cord around neck, without compression, not applicable or unspecified; Z91.148 Patient's other noncompliance with medication regimen for other reason; Z3A.38 38 weeks gestation of pregnancy; Z86.59 Personal history of other mental and behavioral disorders
CPT/HCPCS: 59025; 59050; 82962; 85025; 86780; 86850; 86900; 86901; 99221; J7120; G0378